=== PATIENT | male | born 1945 | race Caucasian/White ===

== ENCOUNTER 2016-07-31 04:43 | Inpatient (IN) | payer MEDICARE ==
[2016-07-31] MEDS ORDERED: IPRATROPIUM 0.5 MG/2.5 ML NEBU INHALATION STA (05:00)
[2016-07-31] MEDS ORDERED: ALBUTEROL NEBULIZED 2.5 MG/3 ML INHALATION STA (05:00)
[2016-07-31] MEDS ORDERED: NITROGLYCERIN OINT 1 INCH/GM PACKET TOPICAL STA (05:01)
[2016-07-31] MEDS ORDERED: ASPIRIN 81 MG CHEW PO STA (05:01)
--- NOTE | 2016-07-31 05:03 | ED ---
General Adult HPI - General Chief complaint: Chest Pain Stated complaint: chest pains Time Seen by Provider: 07/31/16 04:55 Source: patient, RN notes reviewed Mode of arrival: wheelchair Limitations: no limitations - History of Present Illness Initial comments: This is a 71-year-old male with past medical history significant for COPD hypertension and high cholesterol. Patient also has a strong family history of heart disease. Patient comes in today because a couple hours ago he woke up with left-sided chest pain. Patient states that sharp in nature but once that sharpness goes away after about a minute he has an achiness in his chest. Patient states he achiness continues to remain currently. Patient states she's also been much more short of breath since this started. Patient denies any diaphoresis. Patient denies any nausea. Patient denies abdominal pain patient denies vomiting or diarrhea recently. Patient denies any recent episodes of fever or increased cough. Patient denies headache patient denies numbness weakness. Patient denies any lightheadedness dizziness or near syncopal episode. Patient denies any leg swelling or calf tenderness. - Related Data Home Medications Medication Instructions Recorded Confirmed Famotidine [Pepcid] 40 mg PO BID 06/08/15 07/31/16 Gabapentin [Neurontin] 400 mg PO TID 06/08/15 07/31/16 Aspirin 81 mg PO Q24HR 06/09/15 07/31/16 Atenolol [Tenormin] 25 mg PO BID 06/09/15 07/31/16 Atorvastatin Calcium [Lipitor] 10 mg PO HS 06/09/15 07/31/16 Budesonide-Formot 160-4.5 Mcg 2 puff INHALATION RT-BID PRN 06/09/15 07/31/16 [Symbicort 160-4.5 Mcg Inhaler] Cholecalciferol [Vitamin D3] 400 unit PO DAILY 06/09/15 07/31/16 Cyanocobalamin [Vitamin B-12] 1,000 mcg PO DAILY 06/09/15 07/31/16 Allergies Allergy/AdvReac Type Severity Reaction Status Date / Time moxifloxacin [From Avelox] Allergy Unknown Verified 07/31/16 04:56 Review of Systems ROS Statement: Those systems with pertinent positive or pertinent negative responses have been documented in the HPI. ROS Other: All systems not noted in ROS Statement are negative. 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, obesity, chronic dependence and the patient has been utilizing 3 L of oxygen for COPD History of Any Multi-Drug Resistant Organisms: None Reported Past Surgical History: Orthopedic Surgery Past Anesthesia/Blood Transfusion Reactions: No Reported Reaction Past Psychological History: No Psychological Hx Reported Smoking Status: Current every day smoker Past Alcohol Use History: None Reported Past Drug Use History: None Reported - Past Family History Mother Family Medical History: Diabetes Mellitus, Myocardial Infarction (NM) Father Family Medical History: GERD/Reflux General Exam - General Exam Comments Initial Comments: GENERAL: Patient is well-developed and well-nourished. Patient is nontoxic and well- hydrated and is in mild distress. ENT: Neck is soft and supple. No significant lymphadenopathy is noted. Oropharynx is clear. Moist mucous membranes. Neck has full range of motion without eliciting any pain. EYES: The sclera were anicteric and conjunctiva were pink and moist. Extraocular movements were intact and pupils were equal round and reactive to light. Eyelids were unremarkable. PULMONARY: Very diminished breath sounds CARDIOVASCULAR: There is a regular rate and rhythm without any murmurs gallops or rubs. ABDOMEN: Soft and nontender with normal bowel sounds. No palpable organomegaly was noted. There is no palpable pulsatile mass. SKIN: Skin is clear with no lesions or rashes and otherwise unremarkable. NEUROLOGIC: Patient is alert and oriented x3. Cranial nerves II through XII are grossly intact. Motor and sensory are also intact. Normal speech, volume and content. Symmetrical smile. MUSCULOSKELETAL: Normal extremities with adequate strength and full range of motion. No lower extremity swelling or edema. No calf tenderness. LYMPHATICS: No significant lymphadenopathy is noted PSYCHIATRIC: Normal psychiatric evaluation. Normal interpersonal interactions appears functionally intact in deals appropriately with others. No signs of depression. No signs of anxiety. Limitations: no limitations Course Vital Signs 07/31/16 07/31/16 07/31/16 04:53 05:12 05:55 Temperature 99.0 F Pulse Rate 101 H 68 68 Respiratory 20 16 Rate Blood Pressure 149/73 117/78 O2 Sat by Pulse 96 98 Oximetry Medical Decision Making - Medical Decision Making EKG shows normal sinus rhythm at 70 bpm WI interval 182 QRS is 100 Q-T intervals 394 QTC is 425. Patient's EKG shows no ST segment elevation or depression or T wave abnormalities are noted Chest x-ray shows no acute abnormality. Patient received aspirin and Nitropaste he stated that helped his pain significantly. I started the patient on heparin because the patient had chest pain that was relieved by nitroglycerin and he had some risk factors as well. I spoke with Dr. Schwarz admitted the patient I consulted cardiology I wrote admitting orders. - Lab Data Result diagrams: 07/31/16 04:55 07/31/16 04:55 Lab Results 07/31/16 07/31/16 07/31/16 Range/Units 04:55 04:55 04:55 WBC 10.1 (3.8-10.6) k/uL RBC 5.07 (4.30-5.90) m/uL Hgb 15.1 (13.0-17.5) gm/dL Hct 48.8 (39.0-53.0) % MCV 96.2 (80.0-100.0) fL MCH 29.8 (25.0-35.0) pg MCHC 31.0 (31.0-37.0) g/dL RDW 13.2 (11.5-15.5) % Plt Count 205 (150-450) k/uL Neutrophils % 63 % Lymphocytes % 23 % Monocytes % 8 % Eosinophils % 3 % Basophils % 0 % Neutrophils # 6.3 (1.3-7.7) k/uL Lymphocytes # 2.3 (1.0-4.8) k/uL Monocytes # 0.8 (0-1.0) k/uL Eosinophils # 0.3 (0-0.7) k/uL Basophils # 0.0 (0-0.2) k/uL PT (9.0-12.0) sec INR (<1.1) APTT (22.0-30.0) sec Sodium 141 (137-145) mmol/L Potassium 4.6 (3.5-5.1) mmol/L Chloride 96 L (98-107) mmol/L Carbon Dioxide 35 H (22-30) mmol/L Anion Gap 10 mmol/L BUN 22 H (9-20) mg/dL Creatinine 1.10 (0.66-1.25) mg/dL Est GFR (MDRD) Af Amer >60 (>60 ml/min/1.73 sqM) Est GFR (MDRD) Non-Af >60 (>60 ml/min/1.73 sqM) Glucose 133 H (74-99) mg/dL Calcium 10.2 (8.4-10.2) mg/dL Magnesium 1.8 (1.6-2.3) mg/dL Total Bilirubin 0.8 (0.2-1.3) mg/dL AST 17 (17-59) U/L ALT 24 (21-72) U/L Alkaline Phosphatase 81 (38-126) U/L Total Creatine Kinase 63 (55-170) U/L CK-MB (CK-2) 1.8 (0.0-2.4) ng/mL CK-MB (CK-2) Rel Index 2.9 Troponin I <0.012 (0.000-0.034) ng/mL Total Protein 6.8 (6.3-8.2) g/dL Albumin 4.2 (3.5-5.0) g/dL 07/31/16 Range/Units 04:55 WBC (3.8-10.6) k/uL RBC (4.30-5.90) m/uL Hgb (13.0-17.5) gm/dL Hct (39.0-53.0) % MCV (80.0-100.0) fL MCH (25.0-35.0) pg MCHC (31.0-37.0) g/dL RDW (11.5-15.5) % Plt Count (150-450) k/uL Neutrophils % % Lymphocytes % % Monocytes % % Eosinophils % % Basophils % % Neutrophils # (1.3-7.7) k/uL Lymphocytes # (1.0-4.8) k/uL Monocytes # (0-1.0) k/uL Eosinophils # (0-0.7) k/uL Basophils # (0-0.2) k/uL PT 10.7 (9.0-12.0) sec INR 1.1 (<1.1) APTT 25.4 (22.0-30.0) sec Sodium (137-145) mmol/L Potassium (3.5-5.1) mmol/L Chloride (98-107) mmol/L Carbon Dioxide (22-30) mmol/L Anion Gap mmol/L BUN (9-20) mg/dL Creatinine (0.66-1.25) mg/dL Est GFR (MDRD) Af Amer (>60 ml/min/1.73 sqM) Est GFR (MDRD) Non-Af (>60 ml/min/1.73 sqM) Glucose (74-99) mg/dL Calcium (8.4-10.2) mg/dL Magnesium (1.6-2.3) mg/dL Total Bilirubin (0.2-1.3) mg/dL AST (17-59) U/L ALT (21-72) U/L Alkaline Phosphatase (38-126) U/L Total Creatine Kinase (55-170) U/L CK-MB (CK-2) (0.0-2.4) ng/mL CK-MB (CK-2) Rel Index Troponin I (0.000-0.034) ng/mL Total Protein (6.3-8.2) g/dL Albumin (3.5-5.0) g/dL Critical Care Time Critical Care Time: Yes Total Critical Care Time: 35 Disposition Clinical Impression: Unstable angina pectoris Disposition: ADMITTED IP TO THIS [facility] Time of Disposition: 06:23
[2016-07-31 05:11] LABS: Basophils % (A) 0 %; CH 30.4; CHCM 31.7; Eosinophils # (A) 0.3 k/uL (0-0.7); Eosinophils % (A) 3 %; HCT 48.8 % (39.0-53.0); HDW 2.33; HGB 15.1 gm/dL (13.0-17.5); Luc # (Auto) 0.32; Luc % (Auto) 3; Lymphocytes # (A) 2.3 k/uL (1.0-4.8); Lymphocytes % (A) 23 %; MCH 29.8 pg (25.0-35.0); MCV 96.2 fL (80.0-100.0); Mean Platelet Volume 7.5; Monocytes # (A) 0.8 k/uL (0-1.0); Monocytes % (A) 8 %; Neutrophils # (A) 6.3 k/uL (1.3-7.7); Neutrophils % (A) 63 %; RBC 5.07 m/uL (4.30-5.90); RDW 13.2 % (11.5-15.5); WBC 10.1 k/uL (3.8-10.6)
[2016-07-31] MEDS ORDERED: ALBUTEROL NEB (CONC) 2.5 MG/0.5 ML INHALATION STA (05:11)
[2016-07-31 05:20] LABS: INR 1.1 (<1.1); Partial Thromboplastin Time 25.4 sec (22.0-30.0); Prothrombin Time 10.7 sec (9.0-12.0)
[2016-07-31 05:29] LABS: ALT 24 U/L (21-72); AST 17 U/L (17-59); Alkaline Phosphatase 81 U/L (38-126); Anion Gap 10 mmol/L; Blood Urea Nitrogen 22 mg/dL (9-20); Calcium 10.2 mg/dL (8.4-10.2); Carbon Dioxide 35 mmol/L (22-30); Chloride 96 mmol/L (98-107); Glucose 133 mg/dL (74-99); Magnesium 1.8 mg/dL (1.6-2.3); Non-African American GFR(MDRD) >60 (>60 ml/min/1.73 sqM); Potassium 4.6 mmol/L (3.5-5.1); Sodium 141 mmol/L (137-145); Total Bilirubin 0.8 mg/dL (0.2-1.3); Total Protein 6.8 g/dL (6.3-8.2)
--- NOTE | 2016-07-31 05:29 | XR ---
EXAM: XR Chest, 2 Views. CLINICAL HISTORY: Reason: difficulty breathing TECHNIQUE: Frontal and lateral views of the chest. COMPARISON: 06/08/15 chest radiographs FINDINGS: Lungs: Lungs are stable, may be slightly hyperinflated, without focal infiltrate seen. Pleural spaces: Unremarkable. No pneumothorax. Heart: Unremarkable. No cardiomegaly. Mediastinum: Mild aortic ectasia is stable. Bones: Multilevel degenerative changes are again present. No acute fracture. IMPRESSION: No significant change; no new acute findings.
[2016-07-31 05:43] LABS: Creatine Kinase 63 U/L (55-170)
[2016-07-31 05:57] LABS: Creatine Kinase MB 1.8 ng/mL (0.0-2.4); Troponin I <0.012 ng/mL (0.000-0.034)
[2016-07-31] MEDS ORDERED: HEPARIN SODIUM,PORCINE 5,000 UNIT/ML 1 ML VIAL IV ONE (06:23)
[2016-07-31] MEDS ORDERED: NITROGLYCERIN SL TABS 0.4 MG TAB SUBLINGUAL PRN (06:24)
[2016-07-31] MEDS: HEPARIN SODIUM,PORCINE/D5W PMX 25,000 UNIT in DEXTROSE/WATER 1 500ML.BAG IV SCH (06:41)
[2016-07-31 08:11] VITALS: BMI 44.4
--- NOTE | 2016-07-31 10:21 | CONS ---
DATE OF CONSULTATION: Mr. Smith is a 71-year-old gentleman who is seen for the evaluation of chest pain. This patient has a history of hypertension and COPD. He also has a family history of coronary artery disease. Patient woke up this morning with the complaint of pain. The pain was in the substernal area. It was sharp in nature and subsequently patient had an aching in the chest. Patient was also short of breath. Patient denied any diaphoresis, nausea or vomiting. This patient's physical activities are limited because of COPD, but there is no prior history of myocardial infarction. Denies any history of angina. There is no history of diabetes. Home medications include Pepcid, Neurontin, aspirin, Tenormin, vitamin D3. Patient is allergic to AVELOX. Review of systems is otherwise unremarkable. Past medical history includes a history of orthopedic surgery, prior history of smoking, history of neuropathy, COPD, hyperlipidemia, hypertension. Physical examination at present reveals a 71-year-old obesely built gentleman who does not appear to be in any acute distress at present. Blood pressure is 146/75 mmHg, heart rate is 66 per minute, oxygen saturation is 93. Head/ENT examination is negative. Neck is supple. There is no increase in jugular venous pressure. Both the carotid pulses are felt. There is no bruit. Chest is symmetrical. HEART: The PMI is not felt. First and second heart sounds are normal. Lungs reveal a few scattered wheezes. Abdomen is soft. Liver and spleen are not enlarged. Bowel sounds are heard. EXTREMITIES: Peripheral pulsations are 2+. EKG shows normal sinus rhythm without any acute ischemic changes. First troponin is normal. Electrolytes are normal. Chest x-ray is normal. FINAL IMPRESSION: 1. Prolonged episode of chest pain suggestive of unstable angina, rule out any non- ST segment-elevation myocardial infarction. 2. History of hypertension. 3. History of chronic obstructive pulmonary disease. RECOMMENDATIONS: We will do serial EKGs and cardiac enzymes. The patient is started on a beta jorge and Lipitor and the patient is advised further evaluation with a cardiac catheterization. If patient remains stable, we will do it on Tuesday.
[2016-07-31] MEDS: METOPROLOL TARTRATE 25 MG TAB PO SCH ×2 (10:25→19:56)
[2016-07-31] MEDS: FAMOTIDINE 20 MG TAB PO SCH (10:26)
[2016-07-31] MEDS: GABAPENTIN 400 MG CAP PO SCH ×4 (10:26→19:56)
[2016-07-31] MEDS: ATORVASTATIN 40 MG TAB PO SCH (10:26)
[2016-07-31 11:05] LABS: Creatine Kinase 53 U/L (55-170)
[2016-07-31 11:20] LABS: Creatine Kinase MB 1.4 ng/mL (0.0-2.4); Troponin I <0.012 ng/mL (0.000-0.034)
[2016-07-31] MEDS: CYANOCOBALAMIN 500 MCG TAB PO SCH (13:01)
--- NOTE | 2016-07-31 13:02 | HP ---
DATE OF ADMISSION: 07/31/2016 PRESENTING COMPLAINT: Chest pain. HISTORY OF PRESENTING COMPLAINT: This is a pleasant 71-year-old patient of Dr. Moyer. Chronic stable medical conditions include COPD, GERD, hypertension, hyperlipidemia, home oxygen 3 L. Patient woke up at 1:00 with a central chest pain as if something was grabbing inside his heart. Patient a bit short of breath, tired, no perspiration, no radiation and because of presentation decided to come into the ER ( ) unstable angina. No prior cardiac history. Patient does get short winded easily. REVIEW OF SYSTEMS: CONSTITUTIONAL: Tired. HEENT: None. RESPIRATORY: As above. CARDIOVASCULAR: As above. GASTROINTESTINAL: As above. GENITOURINARY: None. MUSCULOSKELETAL: Some aches and pains in the joints. DERMATOLOGICAL: None. HEMATOLOGICAL: None. LYMPHATIC: None. PSYCHIATRY: None. NEUROLOGICAL: None. Past medical history of COPD, GERD, hypertension, hyperlipidemia, chronic respiratory failure on 3 L oxygen at home. PAST SURGICAL HISTORY: Orthopedic surgery, right knee arthroscopy, bunion on the big toe on the left, vasectomy. 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 No alcohol. . FAMILY HISTORY: Mother had heart disease and diabetes. HOME MEDICATIONS: 1. Tenormin 25 mg a day. 2. Aspirin 81 mg weekly. 3. Symbicort 160/4.5 two puffs b.i.d. 4. Lipitor 10 mg q.h.s. 5. Vitamin D3, 400 units p.o. weekly. 6. Pepcid 40 mg p.o. daily. 7. Vitamin B12, 1000 mcg p.o. daily. 8. Neurontin 400 mg p.o. q.i.d. Allergies to AVELOX. On examination, temperature 98.1, pulse 66, respiration 18, blood pressure 146/75, pulse ox 93% on 3 L. GENERAL APPEARANCE: Morbidly obese, BMI of 44.4, sitting up. EYES: Pupils equal. Conjunctivae normal. HEENT: External appearance of nose and ears normal. Oral cavity normal. NECK: JVD not raised. Mass not palpable. RESPIRATORY: Effort normal. LUNGS: Diminished breath sounds. CARDIOVASCULAR: First and second sounds normal. Mild edema. ABDOMEN: Distended, soft. Liver and spleen not palpable. LYMPHATIC: No lymph nodes palpable in the neck or axillae. PSYCHIATRY: Alert and oriented x3. Mood and affect normal. NEUROLOGICAL: Pupils equal. Cranial nerves grossly intact. Power and sensation grossly intact. INVESTIGATIONS: White count 10.1, hemoglobin 15.1, platelets 205. Potassium 4.6, BUN 22, creatinine 1.10. Troponin less than 0.012. EKG normal sinus rhythm. Chest x-ray a bit underpenetrated. Troponins x2 negative. ASSESSMENT: 1. Unstable angina with a cardiac sounding presentation. His cardiac risk factors include ex-smoker, hypertension, hyperlipidemia, obesity. 2. Morbid obesity, body mass index of 44.4. 3. Chronic obstructive pulmonary disease in an ex-smoker. 4. Gastroesophageal reflux disease. 5. Essential hypertension. 6. Hyperlipidemia. 7. Chronic hypoxic respiratory failure on 3 L oxygen at home. PLAN: Patient is put on aspirin, IV heparin, nitro paste. Cardiology is consulted. The patient may need a cardiac catheterization because of his presentation. Will need an inpatient for at least 48 hours to sort this out. Home medications are resumed. Care was discussed with the patient and at the bedside.
[2016-07-31] MEDS: NITROGLYCERIN OINT 1 INCH/GM PACKET TOPICAL SCH ×3 (13:05→20:03)
[2016-07-31] MEDS: ACETAMINOPHEN TAB 325 MG TAB PO PRN (15:06)
--- NOTE | 2016-07-31 16:11 | XR ---
EXAMINATION TYPE: XR lumbar spine 2 or 3V DATE OF EXAM: 07/31/2016 4:03 PM COMPARISON: NONE HISTORY: Back pain TECHNIQUE: 3 views FINDINGS: Vertebra have normal alignment. There is degenerative disc space narrowing at L4-5 and L5-S 1. There is spurring of endplates throughout the lumbar spine. Posterior elements are intact. There i s no compression fracture. Abdominal aorta is atheromatous. Sacroiliac joints appear normal. IMPRESSION: Multilevel spondylosis. No fracture.
[2016-07-31 17:45] LABS: Creatine Kinase 54 U/L (55-170)
[2016-07-31 17:58] LABS: Creatine Kinase MB 1.4 ng/mL (0.0-2.4); Troponin I <0.012 ng/mL (0.000-0.034)
--- NOTE | 2016-07-31 19:34 | ECHOF ---
Referral Reason:angina MEASUREMENTS -------- HEIGHT: 152.4 cm WEIGHT: 140.2 kg BP: 146/70 IVSd: 1.5 cm (0.6 - 1.1) LVIDd: 3.1 cm (3.9 - 5.3) LVPWd: 1.8 cm (0.6 - 1.1) IVSs: 1.4 cm LVIDs: 3.5 cm LVPWs: 1.4 cm Ao Diam: 4.2 cm (2.0 - 3.7) LA Diam: 3.3 cm (2.7 - 3.8) RAP: 5.00 mmHg RVSP: 21.14 mmHg FINDINGS -------- Sinus rhythm. This was a technically difficult study with suboptimal views. Morbid Obesity There is mild concentric left ventricular hypertrophy. Overall left ventricular systolic function is low-normal with, an EF between 50 - 55 %. The right ventricle is normal in size. The right atrial size is normal. 1.5MG OF DEFINITY UTLIZED: 2 OR MORE WALL SEGMENTS NOT VISUALIZED. The aortic valve was not well visualized. Mild mitral annular calcification present. Mild mitral regurgitation is present. The tricuspid valve was not well visualized. There is no evidence of pulmonary hypertension. The right ventricular systolic pressure, as measured by Doppler, is 21.14mmHg. The pulmonic valve was not well visualized. The aortic root size is normal. There is no pericardial effusion. CONCLUSIONS -------- 1. This was a technically difficult study with suboptimal views. 2. There is no evidence of pulmonary hypertension. 3. The right ventricular systolic pressure, as measured by Doppler, is 21.14mmHg. 4. The pulmonic valve was not well visualized. 5. The aortic root size is normal. 6. There is no pericardial effusion. 7. Morbid Obesity 8. There is mild concentric left ventricular hypertrophy. 9. Overall left ventricular systolic function is low-normal with, an EF between 50 - 55 %. 10. 1.5MG OF DEFINITY UTLIZED: 2 OR MORE WALL SEGMENTS NOT VISUALIZED. 11. The aortic valve was not well visualized. 12. Mild mitral annular calcification present. 13. Mild mitral regurgitation is present. 14. The tricuspid valve was not well visualized. CHIP TUNER: Gretel Nunn RDCS
[2016-07-31] MEDS: HEPARIN SODIUM,PORCINE 5,000 UNIT/ML 1 ML VIAL IV PRN (19:57)
[2016-08-01] MEDS: HEPARIN SODIUM,PORCINE/D5W PMX 25,000 UNIT in DEXTROSE/WATER 1 500ML.BAG IV SCH ×2 (03:15→20:12)
[2016-08-01 03:43] LABS: Cholesterol 127 mg/dL (<200); HDL Cholesterol 53 mg/dL (40-60); Triglycerides 82 mg/dL (<150)
[2016-08-01] MEDS: NITROGLYCERIN OINT 1 INCH/GM PACKET TOPICAL SCH ×3 (04:32→17:25)
[2016-08-01] MEDS: HEPARIN SODIUM,PORCINE 5,000 UNIT/ML 1 ML VIAL IV PRN (04:32)
[2016-08-01] MEDS: ASPIRIN 325 MG TAB PO SCH (08:59)
[2016-08-01] MEDS: FAMOTIDINE 20 MG TAB PO SCH (08:59)
[2016-08-01] MEDS: ATORVASTATIN 40 MG TAB PO SCH (08:59)
[2016-08-01] MEDS: GABAPENTIN 400 MG CAP PO SCH ×4 (08:59→21:31)
[2016-08-01] MEDS ORDERED: SODIUM CHLORIDE 0.9% 1,000 ML in EMPTY BAG 1 BAG IV ONE (10:41)
[2016-08-01] MEDS ORDERED: NITROGLYCERIN SL TABS 0.4 MG TAB SUBLINGUAL PRN (10:41)
[2016-08-01] MEDS ORDERED: ASPIRIN 325 MG TAB PO STA (10:41)
[2016-08-01] MEDS ORDERED: ATORVASTATIN 40 MG TAB PO STA (10:41)
[2016-08-01] MEDS ORDERED: ALPRAZolam 0.25 MG TAB PO PRN (10:41)
[2016-08-01] MEDS ORDERED: ALPRAZolam 0.5 MG TAB PO PRN (10:41)
[2016-08-01] MEDS: METOPROLOL TARTRATE 25 MG TAB PO SCH ×2 (12:07→21:31)
[2016-08-01] MEDS: CYANOCOBALAMIN 500 MCG TAB PO SCH (12:07)
[2016-08-01] MEDS: ACETAMINOPHEN TAB 325 MG TAB PO PRN ×2 (17:25→21:31)
--- NOTE | 2016-08-01 19:06 | P.PN ---
Subjective This patient is admitted with a prolonged episode of substernal chest discomfort suggestive of unstable angina syndrome. Since cardiac enzymes are normal. Patient denies any chest pain. Patient is scheduled for cardiac catheterization tomorrow. Objective - Vital Signs Vital signs: Vital Signs Temp 97.8 F 08/01/16 16:00 Pulse 68 08/01/16 16:00 Resp 18 08/01/16 07:51 BP 165/82 08/01/16 16:00 Pulse Ox 93 L 08/01/16 16:00 Intake & Output 08/01/16 08/01/16 08/02/16 06:59 18:59 06:59 Intake Total 564 Balance 564 Intake: IV 120 0.9@20 120 Heparin Sodium,Porcine/ D5w Pmx 25,000 unit In Dextrose/Water 1 500ml. bag @ 7.13 UNITS/KG/HR 19 .98 mls/hr IV .Q24H EDOUARD Rx#:[id number] Intake, IV Titration Amount Heparin Sodium,Porcine/ D5w Pmx 25,000 unit In Dextrose/Water 1 500ml. bag @ 7.13 UNITS/KG/HR 19 .98 mls/hr IV .Q24H EDOUARD Rx#:[id number] Oral 444 Other: Voiding Method Toilet # Voids - Exam Vital signs are reviewed patient is comfortable. Heart. First and second heart sounds are normal. Lungs. Clear to auscultation and percussion. - Labs CBC & Chem 7: 07/31/16 04:55 07/31/16 04:55 Labs: Abnormal Lab Results - Last 24 Hours (Table) 08/01/16 08/01/16 Range/Units 03:15 10:47 APTT 42.3 H 57.2 H (22.0-30.0) sec Assessment and Plan Plan: Patient history suggestive of unstable angina syndrome patient is scheduled for cardiac catheterization tomorrow.
[2016-08-01] MEDS: IPRATROPIUM-ALBUTEROL 3 ML NEB INHALATION SCH (19:13)
[2016-08-02] MEDS: NITROGLYCERIN OINT 1 INCH/GM PACKET TOPICAL SCH ×4 (00:19→16:56)
[2016-08-02 01:04] LABS: Appearance,Urine Clear (Clear); Bacteria,Urine Rare /hpf; Bilirubin,Urine Negative (Negative); Glucose,Urine (UA) Negative (Negative); Ketones,Urine Negative (Negative); Leukocyte Esterase,Urine Negative (Negative); Mucus,Urine Occasional /hpf; Nitrite,Urine Negative (Negative); PH, Urine 5.5 (5.0-8.0); Particle Count 2847; Protein,Urine 1+ (Negative); RBC,Urine <1 /hpf (0-5); Specific Gravity,Urine 1.022 (1.001-1.035); Squamous Epithelial Cell,Urine <1 /hpf (0-4); UA Billing (MACRO vs. MICRO) MICRO; WBC,Urine 1 /hpf (0-5)
[2016-08-02] MEDS: ACETAMINOPHEN TAB 325 MG TAB PO PRN (04:14)
[2016-08-02 06:31] LABS: Glucose,Whole Blood 121 mg/dL (75-99)
--- NOTE | 2016-08-02 07:18 | PN ---
DATE OF SERVICE: 08/01/2016 PRESENTING COMPLAINT: Chest pain. INTERVAL HISTORY: This is a patient with multiple medical problems presented with chest pain, awaiting a cardiac cath tomorrow. Also having trouble in the middle of the back, x-ray does not show lumbar DJD with narrowing of the disc space. Patient had also been short of breath for underlying diagnosis of COPD. Family members at the bedside. Review of systems done for constitutional, cardiovascular, GI, pulmonary; relevant findings as above. Current medications are reviewed and include IV heparin. On examination, temperature 97.8, pulse 58, respiration 16, blood pressure 165/82, pulse ox 93% on room air. GENERAL APPEARANCE: Sitting on the edge of the bed. Tired-appearing. EYES: Pupils equal, conjunctivae normal. NECK: JVD not raised. Mass not palpable. Respiratory effort normal. LUNGS: Diminished breath sounds. CARDIOVASCULAR: First and second sounds normal. Minimal edema. ABDOMEN: Soft, nontender. Liver and spleen not palpable. PSYCHIATRY: Alert and oriented x3. Mood and affect normal. INVESTIGATIONS: Troponins are negative, LDL 58. Lumbar spine x-ray shows evidence of lumbosacral DJD. ASSESSMENT: 1. Unstable angina in a patient with multiple cardiac risk factors, awaiting cardiac catheterization. 2. IV heparin monitoring for therapeutic level. 3. Morbid obesity, body mass index of 44.4. 4. Chronic obstructive pulmonary disease in an ex-smoker. 5. Gastroesophageal reflux disease. 6. Essential hypertension. 7. Hyperlipidemia. 8. Chronic hypoxic respiratory failure, on 3 L of oxygen at home. 9. Lumbar spine degenerative joint disease. 10. Outpatient work-up for obstructive sleep apnea. PLAN: Care was discussed with the patient, his and family members. Questions were answered. Await cardiac catheterization. Will give breathing treatments and Tylenol No. 3 for lower back pain.
[2016-08-02] MEDS: GABAPENTIN 400 MG CAP PO SCH ×4 (08:56→21:11)
[2016-08-02] MEDS: ASPIRIN 325 MG TAB PO SCH (08:56)
[2016-08-02] MEDS: CYANOCOBALAMIN 500 MCG TAB PO SCH (08:57)
[2016-08-02] MEDS: METOPROLOL TARTRATE 25 MG TAB PO SCH ×2 (08:57→21:11)
[2016-08-02] MEDS: FAMOTIDINE 20 MG TAB PO SCH (08:57)
[2016-08-02] MEDS: ATORVASTATIN 40 MG TAB PO SCH (08:57)
[2016-08-02] MEDS: Acetaminophen-Codeine 300-30mg TAB PO PRN ×2 (09:05→16:48)
[2016-08-02] MEDS: IPRATROPIUM-ALBUTEROL 3 ML NEB INHALATION SCH ×4 (09:30→19:48)
[2016-08-02 12:14] LABS: Glucose,Whole Blood 113 mg/dL (75-99)
[2016-08-02] MEDS: HEPARIN SODIUM,PORCINE/D5W PMX 25,000 UNIT in DEXTROSE/WATER 1 500ML.BAG IV SCH (13:30)
[2016-08-02] MEDS ORDERED: LIDOCAINE 2% INJ 20 MG/ML (20 ML MDV) ONE (13:40)
[2016-08-02] MEDS ORDERED: diphenhydrAMINE 50 MG/ML 1 ML VIAL ONE (13:59)
[2016-08-02] MEDS ORDERED: fentaNYL (PF) 50 MCG/ML 2 ML AMP ONE (13:59)
[2016-08-02] MEDS ORDERED: MIDAZOLAM 2 MG/2 ML VIAL ONE (13:59)
[2016-08-02] MEDS ORDERED: SODIUM CHLORIDE 0.9% 1,000 ML IV ONE (14:03)
[2016-08-02] MEDS ORDERED: diphenhydrAMINE 50 MG/ML 1 ML VIAL IVP ONE (14:05)
[2016-08-02] MEDS ORDERED: fentaNYL (PF) 50 MCG/ML 2 ML AMP IV ONE (14:14)
[2016-08-02] MEDS ORDERED: MIDAZOLAM 2 MG/2 ML VIAL IV ONE (14:14)
[2016-08-02] MEDS ORDERED: LIDOCAINE 2% INJ 20 MG/ML SQ ONE (14:16)
[2016-08-02] MEDS ORDERED: IOHEXOL 350 MG/ML 100 ML BOTTLE INJ ONE (14:50)
[2016-08-03] MEDS: NITROGLYCERIN OINT 1 INCH/GM PACKET TOPICAL SCH ×5 (00:17→23:04)
[2016-08-03] MEDS: ASPIRIN 325 MG TAB PO SCH (06:19)
[2016-08-03] MEDS: FAMOTIDINE 20 MG TAB PO SCH (06:19)
[2016-08-03] MEDS: ATORVASTATIN 40 MG TAB PO SCH (06:19)
[2016-08-03] MEDS: GABAPENTIN 400 MG CAP PO SCH ×4 (06:20→20:17)
[2016-08-03] MEDS: METOPROLOL TARTRATE 25 MG TAB PO SCH ×2 (06:20→20:15)
[2016-08-03 06:57] LABS: Anion Gap 7 mmol/L; Blood Urea Nitrogen 13 mg/dL (9-20); Calcium 9.6 mg/dL (8.4-10.2); Carbon Dioxide 33 mmol/L (22-30); Chloride 97 mmol/L (98-107); Glucose 129 mg/dL (74-99); Non-African American GFR(MDRD) >60 (>60 ml/min/1.73 sqM); Potassium 4.5 mmol/L (3.5-5.1); Sodium 137 mmol/L (137-145)
[2016-08-03] MEDS: IPRATROPIUM-ALBUTEROL 3 ML NEB INHALATION SCH ×4 (08:30→20:43)
[2016-08-03] MEDS ORDERED: ALPRAZolam 0.25 MG TAB PO PRN ×2 (09:33→10:10)
[2016-08-03] MEDS ORDERED: ALPRAZolam 0.5 MG TAB PO PRN ×2 (09:33→10:10)
[2016-08-03] MEDS ORDERED: SODIUM CHLORIDE 0.9% 1,000 ML in EMPTY BAG 1 BAG IV ONE ×2 (09:33→10:10)
[2016-08-03] MEDS ORDERED: NITROGLYCERIN SL TABS 0.4 MG TAB SUBLINGUAL PRN ×2 (09:33→10:10)
[2016-08-03] MEDS ORDERED: ASPIRIN 325 MG TAB PO STA ×2 (09:33→10:10)
[2016-08-03] MEDS ORDERED: ATORVASTATIN 80 MG TAB PO STA ×2 (09:33→10:10)
--- NOTE | 2016-08-03 09:39 | PN ---
DATE OF SERVICE: 08/02/2016 PRESENTING COMPLAINT: Chest pain. INTERVAL HISTORY: This is a patient with multiple medical problems presented with chest pain who underwent a cardiac cath today. I do not have the formal results, but patient tells me that they did find a lesion, but have not decided if it needs further intervention. The patient's lower back pain is better with the current medication and breathing is better. is at the bedside. Review of systems done for constitutional, cardiovascular, GI, pulmonary; relevant findings as above. Current medications are reviewed. The patient is currently off heparin. On examination, temperature 97, pulse 58, respirations 18, blood pressure 132/72, pulse ox 96% on 2-L. GENERAL APPEARANCE: Propped up in bed using nebulizer. EYES: Pupils equal. Conjunctivae normal. NECK: JVD not raised. Mass not palpable. RESPIRATORY: Effort increased. LUNGS: Diminished breath sounds. CARDIOVASCULAR: First and second sounds normal. Minimal edema. ABDOMEN: Soft, nontender. Liver and spleen not palpable. PSYCHIATRY: Alert and oriented x3. Mood and affect normal. INVESTIGATIONS: Accu-Cheks are noted. ASSESSMENT: 1. Unstable angina in a patient with multiple cardiac risk factors, status post cardiac cath. I do not have formal results. 2. Morbid obesity, body mass index of 44.4. 3. Chronic obstructive pulmonary disease in an ex-smoker. 4. Gastroesophageal reflux disease. 5. Essential hypertension. 6. Hyperlipidemia. 7. Chronic hypoxic respiratory failure on 3 liters oxygen at home from underlying chronic obstructive pulmonary disease. 8. Lumbar spine degenerative joint disease, chronic, with acute presentation, now doing better. 9. Outpatient work-up for obstructive sleep apnea. PLAN: Care was discussed with the patient and . Will see what Cardiology does. In the meantime, continue other medication and treatment plan.
--- NOTE | 2016-08-03 09:44 | CC ---
DATE OF SERVICE: Mr. Smith is a 71-year-old gentleman who was admitted with a prolonged episode of substernal chest discomfort suggestive of unstable angina syndrome. EKGs and cardiac enzymes were normal, but because of the prolonged episode of the pain. Patient was advised cardiac catheterization for definitive diagnosis. PROCEDURE: The right groin was prepped and draped in the usual manner and the skin was infiltrated with 2% Xylocaine. The right femoral artery was entered using Seldinger technique. A #6 Ethiopian sheath was placed in. Selective coronary angiography was then performed in multiple projections. Patient tolerated the procedure well. Sheath was removed and good hemostasis was achieved with the use of Angio-Seal. CORONARY ANGIOGRAPHY: Left main coronary artery is a short. LAD is a good caliber blood vessel and gives rise to the diagonal branch and after the origin of the diagonal branch. LAD becomes a small caliber blood vessel. There is no evidence of any significant stenosis. There is a small size obtuse marginal branches that is arising by the site from the short left main. The main circumflex coronary artery arises from the right coronary cusp and it gives rise to good-sized obtuse marginal branch and PLV branch. The circumflex coronary artery is normal. Right coronary artery also arises from the [id number] cusp on the right side. The right coronary artery has two areas of stenosis, proximally has about 60% stenosis and distally has a 60% to 70% stenosis. RECOMMENDATIONS: We will review the film with Dr. Jay and then consider regarding either further evaluation with FFR or an angioplasty or medical therapy.
[2016-08-03] MEDS: CYANOCOBALAMIN 500 MCG TAB PO SCH (11:43)
[2016-08-03] MEDS: CLOPIDOGREL 75 MG TAB PO SCH (11:44)
[2016-08-03] MEDS: Acetaminophen-Codeine 300-30mg TAB PO PRN (20:15)
--- NOTE | 2016-08-03 22:31 | PN ---
DATE OF SERVICE: 08/03/2016 PRESETING COMPLAINT: Chest pain. INTERVAL HISTORY: The patient brought to in because of chest pain, had a cardiac cath that showed 2 lesions in the RCA. Cardiology decided to go back in tomorrow and maybe do a stenting. Patient's breathing is better. Back pain is much better. Sitting up in a chair. is with him. Review of systems done for constitutional, cardiovascular, GI, pulmonary, musculoskeletal; relevant findings as above. Current medications are reviewed. The patient is off heparin, is on: 1. Plavix. 2. Nitro paste. On examination, temperature 98, pulse 74, respirations 18, blood pressure 149/68, pulse ox 92% on room air. GENERAL: Sitting up in a chair, comfortable. EYES: Pupils equal. Conjunctivae normal. NECK: JVD not raised. Mass not palpable. RESPIRATORY: Effort normal. LUNGS: Diminished breath sounds. CARDIOVASCULAR: First and second sounds normal, minimal edema. ABDOMEN: Soft, nontender. Liver and spleen not palpable. PSYCHIATRY: Alert and oriented x3. Mood and affect normal. INVESTIGATIONS: Potassium 4.5, BUN 13, creatinine 1.0. ASSESSMENT: 1. Unstable angina in a patient with multiple cardiac risk factors, status post cardiac catheterization, now showing 2 lesions in the right coronary artery. Cardiology is thinking intervention tomorrow. 2. Morbid obesity, body mass index of 44.4. 3. Chronic obstructive pulmonary disease in an ex-smoker. 4. Gastroesophageal reflux disease. 5. Essential hypertension. 6. Hyperlipidemia. 7. Chronic hypoxic respiratory failure on 3L oxygen at home from underlying chronic obstructive pulmonary disease. 8. Lumbar spine degenerative joint disease, chronic with acute presentation, now doing better. 9. Otherwise workup also for sleep apnea. PLAN: Care was discussed with the patient and . Continue current medication and treatment plan. Await repeat cath tomorrow.
[2016-08-04] MEDS: ATORVASTATIN 80 MG TAB PO SCH (05:00)
[2016-08-04] MEDS: Acetaminophen-Codeine 300-30mg TAB PO PRN (05:01)
[2016-08-04] MEDS: NITROGLYCERIN OINT 1 INCH/GM PACKET TOPICAL SCH (05:03)
[2016-08-04] MEDS ORDERED: ASPIRIN 325 MG TAB PO SCH (06:00)
[2016-08-04] MEDS ORDERED: SODIUM CHLORIDE 0.9% 1,000 ML in EMPTY BAG 1 BAG IV ONE (06:00)
[2016-08-04] MEDS ORDERED: HEPARIN SODIUM 1,000 UNIT/ML VIAL ONE (07:10)
[2016-08-04] MEDS ORDERED: LIDOCAINE 2% INJ 20 MG/ML (20 ML MDV) ONE (07:10)
[2016-08-04] MEDS ORDERED: SODIUM CHLORIDE 0.9% (PF) 10 ML VIAL ONE (07:11)
[2016-08-04] MEDS ORDERED: VERAPAMIL 2.5 MG/ML 2 ML AMP ONE (07:11)
[2016-08-04] MEDS ORDERED: fentaNYL (PF) 50 MCG/ML 2 ML AMP ONE (07:18)
[2016-08-04] MEDS: IPRATROPIUM-ALBUTEROL 3 ML NEB INHALATION SCH ×4 (07:23→20:18)
[2016-08-04] MEDS ORDERED: fentaNYL (PF) 50 MCG/ML 2 ML AMP IV ONE (07:40)
[2016-08-04] MEDS ORDERED: LIDOCAINE 2% INJ 20 MG/ML SQ ONE (07:44)
[2016-08-04] MEDS ORDERED: VERAPAMIL SYRINGE (5 MG/10 ML) INTRAARTER ONE (07:45)
[2016-08-04] MEDS ORDERED: CLOPIDOGREL 75 MG TAB ONE (07:47)
[2016-08-04] MEDS ORDERED: BIVALIRUDIN BOLUS 250 MG/50 ML IV ONE ×3 (07:49→07:52)
[2016-08-04] MEDS ORDERED: BIVALIRUDIN 250 MG in SODIUM CHLORIDE 0.9% 50 ML IV ONE (07:53)
[2016-08-04] MEDS ORDERED: CLOPIDOGREL 75 MG TAB PO ONE (07:54)
[2016-08-04] MEDS ORDERED: IOHEXOL 350 MG/ML 100 ML BOTTLE INJ ONE (08:12)
[2016-08-04] MEDS ORDERED: SODIUM CHLORIDE 0.9% 1,000 ML IV ONE (08:15)
[2016-08-04] MEDS ORDERED: ZOLPIDEM 5 MG TAB PO PRN (08:26)
[2016-08-04] MEDS ORDERED: RX INFO: IV CONTRAST WAS GIVEN 1 EACH MISC MISCELLANE PRN (08:26)
[2016-08-04] MEDS ORDERED: ATROPINE SULFATE 0.1 MG/ML 10ML SYRINGE IV PRN (08:26)
[2016-08-04] MEDS ORDERED: MAG HYDROX/AL HYDROX/SIMETH 30 ML CUP PO PRN (08:26)
[2016-08-04] MEDS ORDERED: NITROGLYCERIN SL TABS 0.4 MG TAB SUBLINGUAL PRN (08:26)
[2016-08-04] MEDS ORDERED: SODIUM CHLORIDE 0.9% 1,000 ML IV SCH (08:30)
[2016-08-04] MEDS: GABAPENTIN 400 MG CAP PO SCH ×4 (08:39→20:46)
[2016-08-04] MEDS: CLOPIDOGREL 75 MG TAB PO SCH (08:39)
[2016-08-04] MEDS: METOPROLOL TARTRATE 25 MG TAB PO SCH ×2 (08:40→20:45)
[2016-08-04] MEDS: FAMOTIDINE 20 MG TAB PO SCH (08:40)
[2016-08-04] MEDS: CYANOCOBALAMIN 500 MCG TAB PO SCH (08:40)
--- NOTE | 2016-08-04 08:54 | PTCA ---
DATE OF SERVICE: Mr. Smith is a 71-year-old male who presented with symptoms of chest discomfort. He underwent evaluation by Dr. Karen Birch and was found to have significant stenosis involving the mid and the distal right coronary artery with borderline lesion in the LAD. In view of that, recommendation was made regarding angioplasty and stenting. The procedure as well as risks and complications were discussed with the patient who is in full understanding and agreement. PROCEDURE: The patient was brought to the lab support service tech in a fasting, semi-sedated state after receiving fentanyl and Benadryl. After obtaining moderate conscious sedation, using Xylocaine anesthesia in the Seldinger technique, a 6-Welsh sheath was introduced in the right radial artery. Right coronary angiography performed using 6 Welsh, FR4 guiding catheter and after cannulating the right coronary ostium a 0.014 balanced medium weight J wire was advanced across the lesion, positioned distally then a 2.75 x 15 mm Xience Alpine stent was deployed distally, postdilated at 14 atmospheres. Following that, a balloon was removed and a 3.0 x 18 mm Xience Alpine stent was deployed in the mid segment, post dilated at 14 atmospheres. After the last inflation, after appropriate wait, the balloon and the guide wire was withdrawn back in the guiding catheter. Images were obtained and repeated. Those images reveal stable successful stenting. At that point, the guiding catheter, the balloon and the guidewire removed and a 6 Welsh FR4 guiding catheter was introduced in the system and images of the left coronary system were obtained. Following that, catheter and sheaths were removed. Hemostasis was obtained with deployment of a TR band. There were no immediate complications. Patient is returned to his room in stable condition. Of note, the patient had no chest discomfort or significant EKG changes with the inflations. He received Angiomax per protocol as well as oral loading dose of clopidogrel. RESULTS: 1. Successful stenting of the distal right coronary artery with reduction in stenosis from 70% to 0%. 2. Successful stenting of the mid right coronary artery with reduction in stenosis from 70% to 0%. 3. 40% to 50% lesion in the proximal LAD in a tubular fashion. RECOMMENDATION: Patient will be continued on aspirin, Plavix, beta jorge and KEN inhibitor and statin. The importance of dual antiplatelet treatment were discussed with the patient and his family and they are in full understanding and agreement. The duration of the procedure was 41 minutes. MTDD
[2016-08-04] MEDS: LISINOPRIL 5 MG TAB PO SCH (08:56)
--- NOTE | 2016-08-04 08:57 | LTR ---
August 04, 2016 MARITZA MOYER MD RE: Luis Omar Dear Dr. Moyer: I had the opportunity to perform coronary angioplasty and stenting on Mr. Smith at [facility] on 04 of August and a full copy of the procedure note will be forwarded to you. In brief, he underwent successful stenting of his mid and distal right coronary artery using a drug-eluting stent. I am hopeful that this procedure will stabilize his status and I thank you again for allowing me the opportunity to participate in his care. Please feel free to call for any questions. Sincerely yours, ALICE ROSAS MD
[2016-08-04] MEDS ORDERED: ASPIRIN 81 MG CHEW PO SCH (09:00)
[2016-08-04] MEDS: ACETAMINOPHEN TAB 325 MG TAB PO PRN (20:46)
--- NOTE | 2016-08-05 06:15 | PN ---
DATE OF SERVICE: 08/04/2016 PRESENTING COMPLAINT: Chest pain. INTERVAL HISTORY: This patient came in with chest pain. Initial cardiac cath showed 2 lesions in the RCA. The patient underwent 2 drug eluting stents to the RCA today. Postprocedure, lying in bed, comfortable. No chest pain. Breathing is stable. Review of systems done for constitutional, cardiovascular, GI, pulmonary; relevant findings as above. Current medications are reviewed that include Plavix and aspirin. On examination, pulse 78, respirations 18, blood pressure 166/79, pulse ox 94% on room air. GENERAL APPEARANCE: Lying in bed, comfortable. EYES: Pupils equal. Conjunctivae normal. NECK: JVD not raised. Mass not palpable. RESPIRATORY: Effort normal. LUNGS: Diminished breath sounds. CARDIOVASCULAR: First and second seconds normal. Minimal edema. ABDOMEN: Soft, nontender. Liver and spleen not palpable. PSYCHIATRY: Alert and oriented x3. Mood and affect normal. INVESTIGATIONS: Potassium 4.5. ASSESSMENT: 1. Unstable angina with the patient now having getting 2 drug-eluting stents to the right coronary artery. 2. Morbid obesity, body mass index 44.4. 3. Chronic obstructive pulmonary disease in an ex-smoker. 4. Gastroesophageal reflux disease. 5. Essential hypertension. 6. Hyperlipidemia. 7. Chronic hypoxic respiratory failure, on 3 L oxygen at home from underlying chronic obstructive pulmonary disease. 8. Lumbar spine degenerative joint disease, chronic with acute presentation, now doing better. 9. Outpatient workup for sleep apnea. PLAN: Care was discussed with the patient. Continue current medication and treatment plan.
[2016-08-05 06:57] LABS: Anion Gap 8 mmol/L; Blood Urea Nitrogen 13 mg/dL (9-20); Calcium 9.4 mg/dL (8.4-10.2); Carbon Dioxide 34 mmol/L (22-30); Chloride 97 mmol/L (98-107); Glucose 121 mg/dL (74-99); Non-African American GFR(MDRD) >60 (>60 ml/min/1.73 sqM); Potassium 4.8 mmol/L (3.5-5.1); Sodium 139 mmol/L (137-145)
[2016-08-05] MEDS: IPRATROPIUM-ALBUTEROL 3 ML NEB INHALATION SCH ×3 (08:04→15:52)
[2016-08-05] MEDS ORDERED: ASPIRIN 81 MG CHEW PO SCH (09:00)
[2016-08-05] MEDS: ATORVASTATIN 80 MG TAB PO SCH (10:10)
[2016-08-05] MEDS: FAMOTIDINE 20 MG TAB PO SCH (10:11)
[2016-08-05] MEDS: CLOPIDOGREL 75 MG TAB PO SCH (10:11)
[2016-08-05] MEDS: LISINOPRIL 5 MG TAB PO SCH (10:12)
[2016-08-05] MEDS: METOPROLOL TARTRATE 25 MG TAB PO SCH (10:12)
[2016-08-05] MEDS: ACETAMINOPHEN TAB 325 MG TAB PO PRN (10:12)
[2016-08-05] MEDS: GABAPENTIN 400 MG CAP PO SCH ×2 (10:12→12:11)
[2016-08-05] MEDS: CYANOCOBALAMIN 500 MCG TAB PO SCH (11:25)
[2016-08-05 12:06] VITALS: TEMP 98.2
--- NOTE | 2016-08-05 17:31 | PN ---
This patient underwent stent to the right coronary artery. Mid LAD had mild disease. He is doing well. Right radial pulses are 2+. Patient is afebrile. Blood pressure is 129/62 mmHg. We will continue the current medications and patient can be discharged home.
[2016-08-05 17:55] VITALS: BP 132/59; PULSE 71; RESP 17
--- NOTE | 2016-08-07 13:09 | DS ---
DATE OF ADMISSION: 07/31/2016 DATE OF DISCHARGE: 08/05/2016 FINAL DIAGNOSES: 1. Unstable angina in a patient getting two drug-eluting stents to the right coronary artery. 2. Morbid obesity, body mass index of 44.4. 3. Chronic obstructive pulmonary disease in an ex-smoker. 4. Gastroesophageal reflux disease. 5. Essential hypertension. 6. Hyperlipidemia. 7. Chronic hypoxic respiratory failure on 3 L oxygen at home from underlying chronic obstructive pulmonary disease. 8. Lumbar spine degenerative joint disease, chronic, with acute presentation, now doing better. 9. Outpatient work-up for sleep apnea. HOSPITAL COURSE: This patient presented with some chest pain. Found to have COPD exacerbation, responded well to nebulized bronchodilators, acute low back from osteoarthritis of the spine. He is responding well to medications. Cardiac cath was done in 2 sessions with the second one resulting in 2 stents to the right coronary artery. At the time of discharge the patient is doing been better, up and about. On examination, BUN and creatinine are normal. The patient's 2-D echocardiogram showed EF of 50% to 55%. Care was discussed with the patient in detail. DISCHARGE MEDICATIONS: 1. Pepcid 40 mg p.o. daily. 2. Neurontin 400 mg p.o. q.i.d. 3. Symbicort 160/4.5, 2 puffs b.i.d. 4. Vitamin D3, 4000 units p.o. daily. 5. Vitamin B12, 100 mcg p.o. daily. 6. Tylenol No. 3, 1 tablet every.6 p.r.n. 7. Aspirin 81 mg daily. 8. Lipitor 80 mg a day. 9. Plavix 75 mg a day. 10. DuoNeb q.i.d. 11. Zestril 5 mg a day. 12. Lopressor 25 mg b.i.d. 13. Nitrostat 0.4 sublingual every 5 p.r.n. 14. Ambien 5 mg p.o. at bedtime p.r.n. FOLLOWUP: Follow up with Dr. Kendall Moyer 08/09/2016. Also follow up with Dr. Moyer as outpatient for sleep study. Follow up with Dr. Karen Birch in 2 weeks. Care was discussed in detail with the patient. Discharge planning more than 35 minutes.
== END 2016-08-05 18:17 | disposition home or self-care (01) | DRG 247 ==
LOC: EC 04:43 → 3OBS 06:24 → OBSVTOIN 10:31 → 6SEL 08-01 10:00
PROVIDERS: ADMIT Hospitalist; ATTEND Hospitalist
PROC: B2111ZZ Fluoroscopy of Multiple Coronary Arteries using Low Osmolar Contrast (ICD-10-PCS; 2016-08-02)
PROC: 027035Z Dilation of Coronary Artery, One Artery with Two Drug-eluting Intraluminal Devices, Percutaneous Approach (ICD-10-PCS; principal; 2016-08-04 07:02)
DX: I25.110 Atherosclerotic heart disease of native coronary artery with unstable angina pectoris (principal); J96.11 Chronic respiratory failure with hypoxia; J44.1 Chronic obstructive pulmonary disease with (acute) exacerbation; Z68.41 Body mass index [BMI] 40.0-44.9, adult; E66.01 Morbid (severe) obesity due to excess calories; G62.9 Polyneuropathy, unspecified; Z99.81 Dependence on supplemental oxygen; E78.5 Hyperlipidemia, unspecified; K21.9 Gastro-esophageal reflux disease without esophagitis; I10 Essential (primary) hypertension; M47.816 Spondylosis without myelopathy or radiculopathy, lumbar region; G47.30 Sleep apnea, unspecified; E78.00 Pure hypercholesterolemia, unspecified; Z87.891 Personal history of nicotine dependence; Z79.82 Long term (current) use of aspirin; Z79.899 Other long term (current) drug therapy; Z79.51 Long term (current) use of inhaled steroids; Z82.49 Family history of ischemic heart disease and other diseases of the circulatory system
CPT/HCPCS: 36415; 71020; 72100; 80048; 80053; 80061; 81001; 82550; 82553; 83735; 84484; 85025; 85610; 85730; 87086; 93005; 93306; 93458; 94640; 94760; 96365; 96366; 96374; 96375; 99291

== ENCOUNTER → 2016-10-26 | Outpatient (CLI) | payer MEDICARE ==
[2016-10-29 14:39] LABS: LDL Size 20.1 nm (>20.5); LDL Size 2 20.1 nm (>=20.8)
== END | disposition home or self-care (01) ==
LOC: LABWHC1 08:55
PROVIDERS: ATTEND Internal Medicine Cardiovascular Disease
DX: I25.10 Atherosclerotic heart disease of native coronary artery without angina pectoris (principal)
CPT/HCPCS: 36415; 83704

== ENCOUNTER → 2016-11-11 | Outpatient (CLI) | payer MEDICARE ==
--- NOTE | 2016-11-11 14:59 | CTL ---
EXAMINATION TYPE: CT Low Dose Lung DATE OF EXAM ORDERED: 11/11/2016 HISTORY: Initial. Lung cancer screening CT DLP: [address] CTDI: 3.98 mGy Automated exposure control for dose reduction was used. SCREENING VISIT: Initial COMPARISON: None TECHNIQUE: Low dose computed tomography scan was performed through the chest at 1 mm thick sections a nd reconstructed images in the coronal plane at [address] DIAGNOSTIC QUALITY: Satisfactory FINDINGS: LUNG NODULES: None. LUNGS: COPD: Severity: None Fibrosis: Severity: None Lymph nodes: None Other findings: Some minimal dependent atelectasis is not excluded RIGHT PLEURAL SPACE: Effusion: None Calcification: None Thickening: None Pneumothorax: None LEFT PLEURAL SPACE: Effusion: None Calcification: None Thickening: None Pneumothorax: None HEART: Heart Size: Normal Coronary calcification: None Pericardial effusion: None OTHER FINDINGS: Upper abdomen: Unremarkable Bony thorax: Normal Supraclavicular region: Normal Other: The ascending thoracic aorta at the level the main pulmonary artery measures 4.4 cm. Main pulm onary bifurcation measures 2.5 cm IMPRESSION: 1. Negative CT screening for neoplasm. 2. There is some limitation present. FOLLOW UP CT CHEST RECOMMENDATION: Screening per protocol CT LUNG RAD: Lung-Rad 1 Negative
== END | disposition home or self-care (01) ==
LOC: RADCTMAIN 14:13
PROVIDERS: ATTEND Internal Medicine Cardiovascular Disease
DX: Z12.2 Encounter for screening for malignant neoplasm of respiratory organs (principal); Z87.891 Personal history of nicotine dependence

== ENCOUNTER 2018-02-17 21:54 | Emergency (ER) | payer MEDICARE ==
[2018-02-17 22:07] VITALS: TEMP 98.8
--- NOTE | 2018-02-17 22:34 | ED ---
Extremity Problem HPI - General Chief complaint: Extremity Problem,Nontraumatic Stated complaint: R arm swelling Time Seen by Provider: 02/17/18 22:33 Source: patient Mode of arrival: ambulatory Limitations: no limitations - History of Present Illness Initial comments: Mr. Smith is a 72-year-old gentleman who presents to the emergency department today for evaluation of left forearm redness and swelling. Patient reports that he noticed some redness and mild tenderness to palpation of his left forearm earlier today. He reports that throughout the day the redness seems to spread. He reports it's mildly tender to palpation but doesn't bother him too much if he doesn't touch it. Range of motion of the elbow and wrist. Denies any associated symptoms including fevers, chills, nausea, vomiting. He can't recall any injury to this arm. He does have some chronic skin changes as well as some psoriasis over the elbow. He has no history of cellulitis, skin infections or abscesses in the past. - Related Data Home Medications Medication Instructions Recorded Confirmed Famotidine [Pepcid] 40 mg PO DAILY 06/08/15 02/17/18 Gabapentin [Neurontin] 400 mg PO QID 06/08/15 02/17/18 Cholecalciferol [Vitamin D3] 400 unit PO DAILY 06/09/15 02/17/18 Cyanocobalamin [Vitamin B-12] 1,000 mcg PO DAILY 06/09/15 02/17/18 Albuterol Inhaler [Ventolin Hfa 1 - 2 puff INHALATION RT-Q6H PRN 02/17/18 Inhaler] Aspirin 81 mg PO MOWEFR 02/17/18 02/17/18 Atorvastatin [Lipitor] 80 mg PO HS 02/17/18 02/17/18 Metoprolol Tartrate [Lopressor] 25 mg PO BID 02/17/18 02/17/18 Previous Rx's Medication Instructions Recorded Clopidogrel [Plavix] 75 mg PO DAILY #30 tab 08/05/16 Lisinopril [Zestril] 5 mg PO DAILY #30 tab 08/05/16 Cephalexin [Keflex] 500 mg PO Q6HR 7 Days #28 cap 02/18/18 Sulfamethox-Tmp 800-160Mg [Bactrim 1 tab PO Q12HR #14 tab 09/29/18 DS 800-160 mg] Allergies Allergy/AdvReac Type Severity Reaction Status Date / Time moxifloxacin [From Avelox] Allergy Unknown Verified 02/17/18 23:37 Review of Systems ROS Statement: Those systems with pertinent positive or pertinent negative responses have been documented in the HPI. ROS Other: All systems not noted in ROS Statement are negative. 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, obesity, chronic dependence and the patient has been utilizing 3 L of oxygen for COPD History of Any Multi-Drug Resistant Organisms: None Reported Past Surgical History: Heart Catheterization With Stent, Orthopedic Surgery Additional Past Surgical History / Comment(s): right knee arthroscopy, bunion on big toe on left foot, vasectomy Past Anesthesia/Blood Transfusion Reactions: No Reported Reaction Past Psychological History: No Psychological Hx Reported Smoking Status: Former smoker Past Alcohol Use History: None Reported Past Drug Use History: None Reported - Past Family History Mother Family Medical History: Diabetes Mellitus, Myocardial Infarction ([place]) Father Family Medical History: GERD/Reflux General Exam - General Exam Comments Initial Comments: GENERAL: Patient is well-developed and well-nourished. Patient is nontoxic and well- hydrated and is in no distress. HENT: Normocephalic, Atraumatic. EYES: The sclera were anicteric and conjunctiva were pink and moist. Extraocular movements were intact and pupils were equal round and reactive to light. Eyelids were unremarkable. PULMONARY: Unlabored respirations. Good breath sounds bilaterally. No audible rales rhonchi or wheezing was noted. CARDIOVASCULAR: There is a regular rate and rhythm without any murmurs gallops or rubs. ABDOMEN: Soft and nontender with normal bowel sounds. SKIN: Chronic skin changes, some changes over the elbow consistent with psoriasis. Mild erythema and induration of the left medial forearm. NEUROLOGIC: Patient is alert and oriented x3. Cranial nerves II through XII are grossly intact. Motor and sensory are also intact. Normal speech, volume and content. Symmetrical smile. MUSCULOSKELETAL: Normal extremities with adequate strength and full range of motion. No lower extremity swelling or edema. No calf tenderness. Full range of motion of the right wrist and elbow without pain Right elbow noted to have a palpable bursa, bursa not tender to palpation cellulitis does overlie this area LYMPHATICS: No significant lymphadenopathy is noted PSYCHIATRIC: Normal psychiatric evaluation. Limitations: no limitations Limitations: no limitations Course Vital Signs 02/17/18 02/18/18 22:04 00:46 Temperature 98.8 F Pulse Rate 72 71 Respiratory 18 16 Rate Blood Pressure 132/75 124/73 O2 Sat by Pulse 95 96 Oximetry Medical Decision Making - Medical Decision Making The patient was seen and evaluated history was obtained from the patient History and physical exam are consistent with a cellulitis of the left forearm, patient does have a palpable bursa in the right elbow however it is not tender to palpation. Patient has full range of motion of the elbow without pain. I have no concern for a septic joint. There is possibility of septic bursitis however find this unlikely given that it is not tender. Considering the overlying cellulitis the bursa aspiration is not possible at this time. Labs with no significant abnormalities Blood cultures were obtained First dose of Keflex and Bactrim were given in the ER the patient was discharged home with cautions for Keflex and Bactrim. Patient has had previous orthopedic surgeries with the orthopedic associates, he will contact his orthopedic surgeon on Tuesday for reevaluation. Return parameters including any worsening pain, fever or development of new or concerning symptoms were discussed with the patient is at bedside. All questions pertaining to care were answered the best my ability the patient was discharged home in stable condition. - Lab Data Result diagrams: 02/17/18 23:29 02/17/18 23:29 Lab Results 02/17/18 02/17/18 Range/Units 23:29 23:29 WBC 8.3 (3.8-10.6) k/uL RBC 4.51 (4.30-5.90) m/uL Hgb 13.6 (13.0-17.5) gm/dL Hct 43.0 (39.0-53.0) % MCV 95.3 (80.0-100.0) fL MCH 30.0 (25.0-35.0) pg MCHC 31.5 (31.0-37.0) g/dL RDW 13.2 (11.5-15.5) % Plt Count 173 (150-450) k/uL Neutrophils % 62 % Lymphocytes % 21 % Monocytes % 8 % Eosinophils % 5 % Basophils % 0 % Neutrophils # 5.2 (1.3-7.7) k/uL Lymphocytes # 1.8 (1.0-4.8) k/uL Monocytes # 0.7 (0-1.0) k/uL Eosinophils # 0.5 (0-0.7) k/uL Basophils # 0.0 (0-0.2) k/uL Hypochromasia Slight Sodium 139 (137-145) mmol/L Potassium 4.5 (3.5-5.1) mmol/L Chloride 98 (98-107) mmol/L Carbon Dioxide 35 H (22-30) mmol/L Anion Gap 6 mmol/L BUN 14 (9-20) mg/dL Creatinine 0.94 (0.66-1.25) mg/dL Est GFR (CKD-EPI)AfAm >90 (>60 ml/min/1.73 sqM) Est GFR (CKD-EPI)NonAf 80 (>60 ml/min/1.73 sqM) Glucose 97 (74-99) mg/dL Calcium 9.6 (8.4-10.2) mg/dL Disposition Clinical Impression: Cellulitis Disposition: HOME SELF-CARE Condition: Good Instructions: Cellulitis (DC), Elbow Bursitis (ED) Prescriptions: Cephalexin [Keflex] 500 mg PO Q6HR 7 Days #28 cap Sulfamethox-Tmp 800-160Mg [Bactrim DS 800-160 mg] 1 tab PO Q12HR #14 tab Is patient prescribed a controlled substance at d/c from ED?: No Referrals: Kendall Moyer MD [Primary Care Provider] - 1-2 days
--- NOTE | 2018-02-18 00:09 | XR ---
EXAMINATION TYPE: XR elbow limited RT DATE OF EXAM: 02/17/2018 COMPARISON: NONE HISTORY: Elbow pain TECHNIQUE: 2 views. FINDINGS: there is soft tissue swelling over the olecranon process. I see no fracture nor dislocation. Joint s paces are normal. IMPRESSION: Soft tissue swelling consistent with olecranon bursitis. No fracture.
[2018-02-18 00:18] LABS: Basophils % (A) 0 %; Eosinophils # (A) 0.5 k/uL (0-0.7); Eosinophils % (A) 5 %; HGB 13.6 gm/dL (13.0-17.5); Hypochromasia Slight; Lymphocytes # (A) 1.8 k/uL (1.0-4.8); Lymphocytes % (A) 21 %; MCHC 31.5 g/dL (31.0-37.0); MCV 95.3 fL (80.0-100.0); Monocytes # (A) 0.7 k/uL (0-1.0); Monocytes % (A) 8 %; Neutrophils # (A) 5.2 k/uL (1.3-7.7); Neutrophils % (A) 62 %; Platelet Count 173 k/uL (150-450); RBC 4.51 m/uL (4.30-5.90); RDW 13.2 % (11.5-15.5); WBC 8.3 k/uL (3.8-10.6)
[2018-02-18 00:27] LABS: Anion Gap 6 mmol/L; Blood Urea Nitrogen 14 mg/dL (9-20); Calcium 9.6 mg/dL (8.4-10.2); Carbon Dioxide 35 mmol/L (22-30); Chloride 98 mmol/L (98-107); Glucose 97 mg/dL (74-99); Potassium 4.5 mmol/L (3.5-5.1); Sodium 139 mmol/L (137-145)
[2018-02-18] MEDS ORDERED: SULFAMETH-TMP DS STARTER PACK 2 TAB BTL PO STA (00:37)
[2018-02-18 00:46] VITALS: BP 124/73; PULSE 71; RESP 16
== END 2018-02-18 00:50 | disposition home or self-care (01) ==
LOC: EC 21:54
DX: L03.113 Cellulitis of right upper limb (principal); J44.9 Chronic obstructive pulmonary disease, unspecified; K21.9 Gastro-esophageal reflux disease without esophagitis; E78.5 Hyperlipidemia, unspecified; I10 Essential (primary) hypertension; G62.9 Polyneuropathy, unspecified; Z95.5 Presence of coronary angioplasty implant and graft; Z99.81 Dependence on supplemental oxygen; Z87.891 Personal history of nicotine dependence; Z79.82 Long term (current) use of aspirin; Z79.899 Other long term (current) drug therapy; Z88.0 Allergy status to penicillin; Z98.890 Other specified postprocedural states
CPT/HCPCS: 36415; 80048; 85025; 87040; 99283

== ENCOUNTER → 2018-04-03 | Outpatient (CLI) | payer MEDICARE ==
--- NOTE | 2018-04-03 17:23 | CTL ---
EXAMINATION TYPE: CT Low Dose Lung DATE OF EXAM ORDERED: 04/03/2018 HISTORY: . Lung cancer screening CT DLP: [address] CTDI: 3.52 mGy Automated exposure control for dose reduction was used. SCREENING VISIT: COMPARISON: TECHNIQUE: Low dose computed tomography scan was performed through the chest at 1 mm thick sections a nd reconstructed images in the coronal plane at [address] DIAGNOSTIC QUALITY: Limited, but interpretable FINDINGS: LUNG NODULES: None. LUNGS: COPD: Severity: None Fibrosis: Severity: None Lymph nodes: None Other findings: None RIGHT PLEURAL SPACE: Effusion: None Calcification: None Thickening: None Pneumothorax: None LEFT PLEURAL SPACE: Effusion: None Calcification: None Thickening: None Pneumothorax: None HEART: Heart Size: Normal Coronary calcification: Moderate Pericardial effusion: None The ascending thoracic aorta at the main pulmonary artery is 4.0 cm. The main pulmonary artery at the bifurcation is 2.7 cm. OTHER FINDINGS: Upper abdomen: Limited. No obvious abnormality Bony thorax: Normal Supraclavicular region: Normal Other: None IMPRESSION: 1. No suspicious changes from comparison. FOLLOW UP CT CHEST RECOMMENDATION: Follow-up prior screening protocols. CT LUNG RAD: Lung-Rad 1 Negative
== END ==
LOC: RADCTMAIN 15:05
PROVIDERS: ATTEND Family Medicine
DX: Z12.2 Encounter for screening for malignant neoplasm of respiratory organs (principal); Z87.891 Personal history of nicotine dependence

== ENCOUNTER → 2018-12-14 | Outpatient (CLI) | payer MEDICARE | END | disposition home or self-care (01) | LOC: LABWHC1 08:16 | PROVIDERS: ATTEND Internal Medicine Cardiovascular Disease | DX: I25.10 Atherosclerotic heart disease of native coronary artery without angina pectoris (principal) | CPT/HCPCS: 36415; 83704 ==

== ENCOUNTER → 2020-11-12 | Outpatient (CLI) | payer MEDICARE ==
--- NOTE | 2020-11-12 11:57 | US ---
EXAMINATION TYPE: US kidneys/renal and bladder DATE OF EXAM: 11/12/2020 COMPARISON: US CLINICAL HISTORY: N18.9 Chronic kidney disease. Left renal cyst per prior US. EXAM MEASUREMENTS: Right Kidney: 11.8 x 5.8 x 5.0 cm Left Kidney: 11.9 x 6.0 x 5.0 cm Post Void Residual Volume: 18.6 mL Right Kidney: small lateral cyst = 0.9 x 0.5 x 0.6cm Left Kidney: 2 cysts seen with larger inferior cortical cyst seen = 2.9 x 2.7 x 2.8cm and smaller lat eral cyst seen = 1.1 x 1.1 x 0.8cm. Bladder: wnl Bilateral Jets seen: no, only left ureteral jet was seen within 3 minute observation Normal Post Void Residual: yes There is no evidence for hydronephrosis at this point in time. No nephrolithiasis is seen. The urin zelalem bladder is anechoic. IMPRESSION: Bilateral renal cysts. Only left ureteral jet was visualized. No right ureteral jet was seen.
== END | disposition home or self-care (01) ==
LOC: RADUSWWP 09:30
PROVIDERS: ATTEND Family Medicine
DX: N28.1 Cyst of kidney, acquired (principal); N18.9 Chronic kidney disease, unspecified
CPT/HCPCS: 76770

== ENCOUNTER → 2022-08-12 | Outpatient (CLI) | payer MEDICARE ==
--- NOTE | 2022-08-12 15:32 | XR ---
EXAMINATION TYPE: XR Hip LT and AP Pelvis DATE OF EXAM: 08/12/2022 3:20 PM INDICATION: Patient age:Male; 77 years old; Reason for study: M25.552; [facility]. COMPARISON: None. TECHNIQUE: The left hip was examined in the frontal and lateral projections and a AP pelvis. FINDINGS: No acute fracture or dislocation. There is medial joint space narrowing with acetabular scl erosis and marginal osteophytosis of both hips. No pelvic calcifications. Multilevel degenerative marlin nges of visualized spine. Vascular sclerosis. IMPRESSION: 1. No acute osseous pathology. 2. 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
== END | disposition home or self-care (01) ==
LOC: RADXRMAIN 15:03
PROVIDERS: ATTEND Family Medicine
DX: M16.0 Bilateral primary osteoarthritis of hip (principal)
CPT/HCPCS: 73502

== ENCOUNTER 2023-03-13 21:30 | Observation (INO) | payer MEDICARE ==
[2023-03-13] MEDS ORDERED: MAGNESIUM SULFATE-D5W PMX 1 GM in DEXTROSE/WATER 1 100ML.BAG IVPB STA (22:17)
[2023-03-13] MEDS ORDERED: methylPREDNISolone SOD SUCCI 125 MG/2 ML VIAL IV STA (22:17)
[2023-03-13] MEDS ORDERED: IPRATROPIUM-ALBUTEROL 3 ML NEB INHALATION STA (22:17)
--- NOTE | 2023-03-13 23:10 | ED ---
SOB HPI - General Chief Complaint: Shortness of Breath Stated Complaint: Weakness Time Seen by Provider: 03/13/23 21:45 Source: patient Mode of arrival: wheelchair Limitations: no limitations - History of Present Illness Initial Comments: 77-year-old male past history of COPD and atherosclerotic coronary artery disease who presents emergency Department with shortness of breath. Patient does wear 2 L of oxygen as needed however states over the past month he has been wearing oxygen at all times. He has had exertional dyspnea. Admits to a nonproductive cough. He does have chest pain which he describes as a pressure sensation. He saw his bet taker who placed him on a daily antibiotic and a long taper of steroids. States he has been taking the medications as directed however finished all of them and still has symptoms. He denies sick contacts. No fevers. He has been using his nebulizer twice daily without any improvement in his symptoms. He denies any abdominal pain. No lower extremity swelling. No history of congestive heart failure. Denies any history of DVT or PE. No other alleviating, precipitating or modifying factors - Related Data Home Medications Medication Instructions Recorded Confirmed Famotidine [Pepcid] 40 mg PO DAILY 06/08/15 02/17/18 Gabapentin [Neurontin] 400 mg PO QID 06/08/15 02/17/18 Cholecalciferol [Vitamin D3 (10 400 unit PO DAILY 06/09/15 02/17/18 Mcg = 400 Iu)] Cyanocobalamin [Vitamin B-12] 1,000 mcg PO DAILY 06/09/15 02/17/18 Albuterol Inhaler [Ventolin Hfa 1 - 2 puff INHALATION RT-Q6H PRN 02/17/18 02/17/18 Inhaler] Aspirin 81 mg PO MOWEFR 02/17/18 02/17/18 Atorvastatin [Lipitor] 80 mg PO HS 02/17/18 02/17/18 Metoprolol Tartrate [Lopressor] 25 mg PO BID 02/17/18 02/17/18 Previous Rx's Medication Instructions Recorded Clopidogrel [Plavix] 75 mg PO DAILY #30 tab 08/05/16 lisinopriL [Zestril] 5 mg PO DAILY #30 tab 08/05/16 Cephalexin [Keflex] 500 mg PO Q6HR 7 Days #28 cap 02/18/18 Sulfamethox-Tmp 800-160Mg [Bactrim 1 tab PO Q12HR #14 tab 02/18/18 DS 800-160 mg] Allergies Allergy/AdvReac Type Severity Reaction Status Date / Time moxifloxacin [From Avelox] Allergy Unknown Verified 03/13/23 21:43 Review of Systems ROS Statement: Those systems with pertinent positive or pertinent negative responses have been documented in the HPI. ROS Other: All systems not noted in ROS Statement are negative. 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, obesity, chronic dependence and the patient has been utilizing 3 L of oxygen for COPD History of Any Multi-Drug Resistant Organisms: None Reported Past Surgical History: Heart Catheterization With Stent, Orthopedic Surgery Additional Past Surgical History / Comment(s): right knee arthroscopy, bunion on big toe on left foot, vasectomy Past Anesthesia/Blood Transfusion Reactions: No Reported Reaction Past Psychological History: No Psychological Hx Reported Past Alcohol Use History: None Reported Past Drug Use History: None Reported - Past Family History Mother Family Medical History: Diabetes Mellitus, Myocardial Infarction ([place]) Father Family Medical History: GERD/Reflux General Exam Limitations: no limitations General appearance: alert, in no apparent distress Head exam: Present: atraumatic, normocephalic, normal inspection Eye exam: Present: normal appearance, PERRL, EOMI. Absent: scleral icterus, con junctival injection, periorbital swelling ENT exam: Present: normal exam, mucous membranes moist Neck exam: Present: normal inspection. Absent: tenderness, meningismus, lymphadenopathy Respiratory exam: Present: accessory muscle use, decreased breath sounds, other (Tachypnea). Absent: respiratory distress, wheezes, rales, rhonchi, stridor Cardiovascular Exam: Present: normal rhythm, tachycardia, normal heart sounds. Absent: systolic murmur, diastolic murmur, rubs, gallop, clicks GI/Abdominal exam: Present: soft, normal bowel sounds. Absent: distended, tenderness, guarding, rebound, rigid Extremities exam: Present: normal inspection, full ROM, normal capillary refill. Absent: tenderness, pedal edema, joint swelling, calf tenderness Back exam: Present: normal inspection Neurological exam: Present: alert, oriented X3, CN II-XII intact Psychiatric exam: Present: normal affect, normal mood Skin exam: Present: warm, dry, intact, normal color. Absent: rash Course Vital Signs 03/13/23 03/13/23 03/13/23 21:40 21:52 22:06 Temperature 99.2 F Pulse Rate 120 H 130 H Respiratory 28 H 30 H 30 H Rate Blood Pressure 171/84 134/75 O2 Sat by Pulse 93 L 95 Oximetry 03/13/23 03/13/23 03/13/23 22:41 23:33 23:34 Temperature Pulse Rate 130 H 120 H 117 H Respiratory 30 H 26 H Rate Blood Pressure 134/78 124/98 O2 Sat by Pulse 95 95 Oximetry 03/13/23 03/14/23 23:44 01:30 Temperature Pulse Rate 121 H 106 H Respiratory 28 H Rate Blood Pressure 103/55 O2 Sat by Pulse 94 L Oximetry Medical Decision Making - Medical Decision Making Was pt. sent in by a medical professional or institution (, PA, BORDER INSPECTOR, urgent care, hospital, or long-term...) When possible be specific @ -No Did you speak to anyone other than the patient for history (EMS, parent, family, police, friend...)? What history was obtained from this source @ -Spoke with the for history Did you review nursing and triage notes (agree or disagree)? Why? @ -I reviewed and agree with nursing and triage notes Were old charts reviewed (outside hosp., previous admission, EMS record, old EKG, old radiological studies, urgent care reports/EKG's, long-term records)? Report findings @ -I reviewed the results of the patient's heart cath from 2018 where he received 2 stents Differential Diagnosis (chest pain, altered mental status, abdominal pain women, abdominal pain men, vaginal bleeding, weakness, fever, dyspnea, syncope, h eadache, dizziness, GI bleed, back pain, seizure, CVA, palpatations, mental health, musculoskeletal)? @ -Differential Dyspnea: Coronary syndrome, arrhythmia, tamponade, asthma, COPD, pulmonary embolism, pneumonia, pneumothorax, pulmonary effusion, anaphylaxis, diabetic ketoacidosis, flailed chest, pulmonary contusion, diaphragmatic rupture, anemia, neuromuscular, this is not meant to be an all-inclusive list. EKG interpreted by me (3pts min.). @ - Yes and demonstrates a tachycardic rhythm with significant artifact. Question whether there is P waves. Rate of 134. QRS 105. QTC of 363 Repeat performed at 12:51 AM demonstrating sinus tachycardia with a rate of 108. IA interval 168. QRS 114. QTC of 375 X-rays interpreted by me (1pt min.). @ -Yes and demonstrates no acute process CT interpreted by me (1pt min.). @ -Yes and does not demonstrate PE. Positive for emphysema U/S interpreted by me (1pt. min.). @ -None done What testing was considered but not performed or refused? (CT, X-rays, U/S, labs)? Why? @ -None What meds were considered but not given or refused? Why? @ -None Did you discuss the management of the patient with other professionals (professionals i.e. , PA, BORDER INSPECTOR, lab, RT, psych nurse, hospital social worker, program management intern, teacher, geographic area intelligence officer, window caser)? Give summary @ -Spoke with Dr. Azar who will admit patient Was smoking cessation discussed for >3mins.? @ -No Was critical care preformed (if so, how long)? @ -No Were there social determinants of health that impacted care today? How? (Homelessness, low income, unemployed, alcoholism, drug addiction, transportation, low edu. Level, literacy, decrease access to med. care, group home, rehab)? @ -No Was there de-escalation of care discussed even if they declined (Discuss DNR or withdrawal of care, Hospice)? DNR status @ -No What co-morbidities impacted this encounter? (DM, HTN, Smoking, COPD, CAD, Cancer, CVA, ARF, Chemo, Hep., AIDS, mental health diagnosis, sleep apnea, morbid obesity)? @ -COPD, atherosclerotic coronary artery disease, obesity Was patient admitted / discharged? Hospital course, mention meds given and route, prescriptions, significant lab abnormalities, going to OR and other pertinent info. @ -Upon arrival patient was placed into room 10. A thorough history and physical exam is performed. He does have tachypnea and decreased breath sounds. He is saturating 93% on room air. He is placed on 2 L of oxygen. Breathing treatment is administered. IV is established and the patient is given a gram of magnesium and 125 of Solu-Medrol. Laboratory studies are conducted. D-dimer is elevated and therefore the patient is sent for CT. CT does not demonstrate any PE. As the patient has already gone through outpatient management I did feel that the patient requires admission at this time. He was agreeable to this. I spoke with Dr. Azar who agreed to admit the patient. Pulmonology will be placed on consult and troponins will be trended Undiagnosed new problem with uncertain prognosis? @ -No Drug Therapy requiring intensive monitoring for toxicity (Heparin, Nitro, Insulin, Cardizem)? @ -No Were any procedures done? @ -No Diagnosis/symptom? @ -Acute respiratory insufficiency, COPD exacerbation, failed outpatient m anagement Acute, or Chronic, or Acute on Chronic? @ -Acute on chronic Uncomplicated (without systemic symptoms) or Complicated (systemic symptoms)? @ -Complicated Side effects of treatment? @ -No Exacerbation, Progression, or Severe Exacerbation? @ -Yes Poses a threat to life or bodily function? How? (Chest pain, [place], [place], pneumonia, PE, COPD, DKA, ARF, appy, cholecystitis, CVA, Diverticulitis, Homicidal, Suicidal, threat to staff... and all critical care pts) @ -No - Lab Data Result diagrams: 03/13/23 22:17 03/13/23 22:17 Lab Results 03/13/23 03/13/23 03/13/23 Range/Units 22:17 22:17 22:17 WBC 9.3 (3.8-10.6) k/uL RBC 4.53 (4.30-5.90) m/uL Hgb 13.8 (13.0-17.5) gm/dL Hct 43.2 (39.0-53.0) % MCV 95.2 (80.0-100.0) fL MCH 30.5 (25.0-35.0) pg MCHC 32.1 (31.0-37.0) g/dL RDW 13.1 (11.5-15.5) % Plt Count 240 (150-450) k/uL MPV 9.0 Neutrophils % 80 % Lymphocytes % 9 % Monocytes % 8 % Eosinophils % 1 % Basophils % 0 % Neutrophils # 7.4 (1.3-7.7) k/uL Lymphocytes # 0.8 L (1.0-4.8) k/uL Monocytes # 0.7 (0-1.0) k/uL Eosinophils # 0.1 (0-0.7) k/uL Basophils # 0.0 (0-0.2) k/uL PT 9.8 L (10.0-12.5) sec INR 0.9 (<1.2) APTT 24.3 (22.0-30.0) sec D-Dimer 1.01 H (<0.60) mg/L FEU Sodium 135 L (137-145) mmol/L Potassium 4.5 (3.5-5.1) mmol/L Chloride 97 L (98-107) mmol/L Carbon Dioxide 28 (22-30) mmol/L Anion Gap 10 mmol/L BUN 23 H (9-20) mg/dL Creatinine 0.96 (0.66-1.25) mg/dL Est GFR (CKD-EPI)AfAm 87 (>60 ml/min/1.73 sqM) Est GFR (CKD-EPI)NonAf 75 (>60 ml/min/1.73 sqM) Glucose 133 H (74-99) mg/dL Plasma Lactic Acid Antonio (0.7-2.0) mmol/L Calcium 9.8 (8.4-10.2) mg/dL Magnesium 1.7 (1.6-2.3) mg/dL Total Bilirubin 0.7 (0.2-1.3) mg/dL AST 43 (17-59) U/L ALT 23 (4-49) U/L Alkaline Phosphatase 99 (38-126) U/L Troponin I (0.000-0.034) ng/mL NT-Pro-B Natriuret Pep 104 pg/mL Total Protein 7.1 (6.3-8.2) g/dL Albumin 4.0 (3.5-5.0) g/dL Influenza Type A (PCR) (Not Detectd) Influenza Type B (PCR) (Not Detectd) RSV (PCR) (Not Detectd) SARS-CoV-2 (PCR) (Not Detectd) 03/13/23 03/13/23 03/13/23 Range/Units 22:17 22:17 22:18 WBC (3.8-10.6) k/uL RBC (4.30-5.90) m/uL Hgb (13.0-17.5) gm/dL Hct (39.0-53.0) % MCV (80.0-100.0) fL MCH (25.0-35.0) pg MCHC (31.0-37.0) g/dL RDW (11.5-15.5) % Plt Count (150-450) k/uL MPV Neutrophils % % Lymphocytes % % Monocytes % % Eosinophils % % Basophils % % Neutrophils # (1.3-7.7) k/uL Lymphocytes # (1.0-4.8) k/uL Monocytes # (0-1.0) k/uL Eosinophils # (0-0.7) k/uL Basophils # (0-0.2) k/uL PT (10.0-12.5) sec INR (<1.2) APTT (22.0-30.0) sec D-Dimer (<0.60) mg/L FEU Sodium (137-145) mmol/L Potassium (3.5-5.1) mmol/L Chloride (98-107) mmol/L Carbon Dioxide (22-30) mmol/L Anion Gap mmol/L BUN (9-20) mg/dL Creatinine (0.66-1.25) mg/dL Est GFR (CKD-EPI)AfAm (>60 ml/min/1.73 sqM) Est GFR (CKD-EPI)NonAf (>60 ml/min/1.73 sqM) Glucose (74-99) mg/dL Plasma Lactic Acid Antonio 1.3 (0.7-2.0) mmol/L Calcium (8.4-10.2) mg/dL Magnesium (1.6-2.3) mg/dL Total Bilirubin (0.2-1.3) mg/dL AST (17-59) U/L ALT (4-49) U/L Alkaline Phosphatase (38-126) U/L Troponin I 0.014 (0.000-0.034) ng/mL NT-Pro-B Natriuret Pep pg/mL Total Protein (6.3-8.2) g/dL Albumin (3.5-5.0) g/dL Influenza Type A (PCR) Not Detected (Not Detectd) Influenza Type B (PCR) Not Detected (Not Detectd) RSV (PCR) Not Detected (Not Detectd) SARS-CoV-2 (PCR) Not Detected (Not Detectd) Disposition Clinical Impression: Respiratory insufficiency Disposition: ADMITTED IP TO THIS HOSP Condition: Stable Is patient prescribed a controlled substance at d/c from ED?: No Time of Disposition: 00:56 Decision to Admit Reason: Admit from EC Decision Date: 03/14/23 Decision Time: 00:56
[2023-03-13 23:12] LABS: Basophils % (A) 0 %; Eosinophils # (A) 0.1 k/uL (0-0.7); Eosinophils % (A) 1 %; HCT 43.2 % (39.0-53.0); HGB 13.8 gm/dL (13.0-17.5); Lymphocytes # (A) 0.8 k/uL (1.0-4.8); Lymphocytes % (A) 9 %; MCH 30.5 pg (25.0-35.0); MCHC 32.1 g/dL (31.0-37.0); MCV 95.2 fL (80.0-100.0); Monocytes # (A) 0.7 k/uL (0-1.0); Monocytes % (A) 8 %; Neutrophils # (A) 7.4 k/uL (1.3-7.7); Neutrophils % (A) 80 %; Platelet Count 240 k/uL (150-450); RBC 4.53 m/uL (4.30-5.90); RDW 13.1 % (11.5-15.5); WBC 9.3 k/uL (3.8-10.6)
[2023-03-13 23:22] LABS: INR 0.9 (<1.2); Partial Thromboplastin Time 24.3 sec (22.0-30.0); Prothrombin Time 9.8 sec (10.0-12.5)
[2023-03-13 23:30] LABS: ALT 23 U/L (4-49); AST 43 U/L (17-59); African American GFR (CKD) 87 (>60 ml/min/1.73 sqM); Alkaline Phosphatase 99 U/L (38-126); Anion Gap 10 mmol/L; Blood Urea Nitrogen 23 mg/dL (9-20); Calcium 9.8 mg/dL (8.4-10.2); Carbon Dioxide 28 mmol/L (22-30); Chloride 97 mmol/L (98-107); Glucose 133 mg/dL (74-99); Magnesium 1.7 mg/dL (1.6-2.3); Non-African American GFR(CKD) 75 (>60 ml/min/1.73 sqM); Potassium 4.5 mmol/L (3.5-5.1); Sodium 135 mmol/L (137-145); Total Bilirubin 0.7 mg/dL (0.2-1.3); Total Protein 7.1 g/dL (6.3-8.2)
[2023-03-13 23:37] LABS: NT-Pro-B-Type Natriuretic Pept 104 pg/mL
--- NOTE | 2023-03-14 00:24 | XR ---
EXAM: XR Chest, 1 View CLINICAL HISTORY: ITS.REASON XR Reason: difficulty breathing TECHNIQUE: Frontal view of the chest. COMPARISON: No relevant prior studies available. FINDINGS: Lungs: Unremarkable. No consolidation. Pleural space: Unremarkable. No pneumothorax. Heart: Unremarkable. No cardiomegaly. Mediastinum: Unremarkable. Bones/joints: Unremarkable. IMPRESSION: Normal chest x-ray.
--- NOTE | 2023-03-14 00:34 | CT ---
EXAM: CT Angiography Chest With Intravenous Contrast CLINICAL HISTORY: ITS.REASON CT Reason: sob TECHNIQUE: Axial computed tomographic angiography images of the chest with intravenous contrast. CTDI is 40.38 mGy and DLP is 1173.4 mGy-cm. This CT exam was performed using one or more of the following dose reduction techniques: automated exposure control, adjustment of the mA and/or kV according to patient size, and/or use of iterative reconstruction technique. MIP reconstructed images were created and reviewed. COMPARISON: No relevant prior studies available. FINDINGS: Pulmonary arteries: Unremarkable. No pulmonary embolism. Aorta: Atherosclerotic changes of the aorta. No thoracic aortic aneurysm. Lungs: Unremarkable. No mass. No consolidation. Pleural space: Moderate centrilobular emphysema. No focal infiltrate, pleural effusion, or pneumothorax. Heart: Unremarkable. No cardiomegaly. No significant pericardial effusion. No evidence of RV dysfunction. Bones/joints: Degenerative changes of the spine. No acute fracture. No dislocation. Soft tissues: Unremarkable. Lymph nodes: Unremarkable. No enlarged lymph nodes. IMPRESSION: Moderate centrilobular emphysema. No focal infiltrate, pleural effusion, or pneumothorax.
[2023-03-14] MEDS ORDERED: NALOXONE 0.4 MG/ML 1 ML VIAL IV PRN (01:03)
[2023-03-14] MEDS ORDERED: IPRATROPIUM-ALBUTEROL 3 ML NEB INHALATION PRN (02:28)
--- NOTE | 2023-03-14 02:29 | P.HPIM ---
History of Present Illness H&P Date: 03/14/23 Patient is a 77-year-old male with a PMH of COPD on 3 L nasal cannula oxygen continuously at home, hypertension, hyperlipidemia, and GERD who presents to the emergency room with complaints of shortness of breath, cough, and chest tightness. Patient reports he has been experiencing these symptoms over the past several weeks for which she was seen at his pharmaceutical salesperson Dr. Sierra's office 2- 3 weeks ago and was started on a steroid taper and a course of antibiotics which she has finished a few days ago. Reports minimal improvement in his symptoms with cough productive of yellow-green phlegm. Reports that the chest tightness is chronic and has been present over the past several years but is only somewhat worsened now. Denied experiencing fever, nausea, vomiting, abdominal pain, diarrhea. In the emergency room, a chest CTA revealed moderate centrilobular emphysema. EKG showed sinus tachycardia initially at 134 bpm and subsequently at 108 bpm with inferior lead Q waves noted. Laboratory evaluation was remarkable for lactic acid 1.3, troponin 0.014, d-dimer 1.01, sodium 135, proBNP 104, with viral panel negative. ED documentation reviewed and case discussed with ED provider. Review of systems: Pertinent positives and negatives as discussed in HPI, a complete review of systems was performed and all other systems are negative. Physical examination: Vital signs reviewed General: non toxic, no distress, appears at stated age, morbidly obese Derm: no unusual rashes/lesions, warm Head: atraumatic, normocephalic, symmetric Eyes: EOMI, no lid lag, anicteric sclera, pupils equal round reactive to light ENT: Nose and ears atraumatic Neck: No cervical lymphadenopathy, trachea midline, supple Mouth: no lip lesion, mucus membranes moist Cardiovascular: S1S2 reg, no murmur, positive dorsalis pedis pulse bilateral, no edema Lungs: Poor air entry bilaterally with expiratory wheezing appreciated without rales or rhonchi, no accessory muscle use Abdominal: soft, nontender to palpation, no guarding Ext: muscle strength 5 out of 5 in all 4 extremities grossly, no gross muscle atrophy, no contractures, Neuro: CN II-XI grossly intact, no gross focal neuro deficits Psych: Alert, oriented, appropriate affect Assessment: Acute COPD exacerbation Chest tightness, chronic with low suspicion for ACS at this time Chronic conditions: Hypertension, hyperlipidemia Imaging: In the emergency room, a chest CTA revealed moderate centrilobular emphysema. EKG showed sinus tachycardia initially at 134 bpm and subsequently at 108 bpm with inferior lead Q waves noted. Data Review: Laboratory evaluation was remarkable for lactic acid 1.3, troponin 0.014, d- dimer 1.01, sodium 135, proBNP 104, with viral panel negative. 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, obesity, chronic dependence and the patient has been utilizing 3 L of oxygen for COPD History of Any Multi-Drug Resistant Organisms: None Reported Past Surgical History: Heart Catheterization With Stent, Orthopedic Surgery Additional Past Surgical History / Comment(s): right knee arthroscopy, bunion on big toe on left foot, vasectomy Past Anesthesia/Blood Transfusion Reactions: No Reported Reaction Past Psychological History: No Psychological Hx Reported Past Alcohol Use History: None Reported Past Drug Use History: None Reported - Past Family History Mother Family Medical History: Diabetes Mellitus, Myocardial Infarction ([place]) Father Family Medical History: GERD/Reflux Medications and Allergies Home Medications Medication Instructions Recorded Confirmed Type Famotidine [Pepcid] 40 mg PO DAILY 06/08/15 02/17/18 History Gabapentin [Neurontin] 400 mg PO QID 06/08/15 02/17/18 History Cholecalciferol [Vitamin D3 (10 400 unit PO DAILY 06/09/15 02/17/18 History Mcg = 400 Iu)] Cyanocobalamin [Vitamin B-12] 1,000 mcg PO DAILY 06/09/15 02/17/18 History Clopidogrel [Plavix] 75 mg PO DAILY #30 tab 08/05/16 02/17/18 Rx lisinopriL [Zestril] 5 mg PO DAILY #30 tab 08/05/16 02/17/18 Rx Albuterol Inhaler [Ventolin Hfa 1 - 2 puff INHALATION RT-Q6H PRN 02/17/18 02/17/18 History Inhaler] Aspirin 81 mg PO MOWEFR 02/17/18 02/17/18 History Atorvastatin [Lipitor] 80 mg PO HS 02/17/18 02/17/18 History Metoprolol Tartrate [Lopressor] 25 mg PO BID 02/17/18 02/17/18 History Cephalexin [Keflex] 500 mg PO Q6HR 7 Days #28 cap 02/18/18 Rx Sulfamethox-Tmp 800-160Mg [Bactrim 1 tab PO Q12HR #14 tab 02/18/18 Rx DS 800-160 mg] Allergies Allergy/AdvReac Type Severity Reaction Status Date / Time moxifloxacin [From Avelox] Allergy Unknown Verified 03/13/23 21:43 Physical Exam Vitals: Vital Signs Temp Pulse Resp BP Pulse Ox 03/14/23 01:30 106 H 28 H 103/55 94 L 03/13/23 23:44 121 H 03/13/23 23:34 117 H 03/13/23 23:33 120 H 26 H 124/98 95 03/13/23 22:41 130 H 30 H 134/78 95 03/13/23 22:06 130 H 30 H 134/75 95 03/13/23 21:52 30 H 03/13/23 21:40 99.2 F 120 H 28 H 171/84 93 L Intake and Output 03/13/23 03/13/23 03/14/23 14:59 22:59 06:59 Other: Weight 139.706 kg Results CBC & Chem 7: 03/13/23 22:17 03/13/23 22:17 Labs: Abnormal Lab Results - Last 24 Hours (Table) 03/13/23 03/13/23 03/13/23 Range/Units 22:17 22:17 22:17 Lymphocytes # 0.8 L (1.0-4.8) k/uL PT 9.8 L (10.0-12.5) sec D-Dimer 1.01 H (<0.60) mg/L FEU Sodium 135 L (137-145) mmol/L Chloride 97 L (98-107) mmol/L BUN 23 H (9-20) mg/dL Glucose 133 H (74-99) mg/dL
[2023-03-14] MEDS ORDERED: IPRATROPIUM-ALBUTEROL 3 ML NEB INHALATION SCH (04:00)
--- NOTE | 2023-03-14 06:50 | P.CNPUL ---
History of Present Illness Consult date: 03/14/23 Requesting physician: Alberta London Reason for consult: COPD Chief complaint: Progressively worsening shortness of breath over the last month History of present illness: I am seeing this patient in consultation today 03/14/2023 for acute COPD exacerbation. Patient is a 77-year-old white male with past medical history significant for severe oxygen dependent COPD, hypertension, hyperlipidemia, coronary artery disease, Raynaud's, and former tobacco smoker. Patient's primary care provider is Dr. Kohler. He does follow the pulmonary office with Dr. Sierra for management of his severe COPD. Patient started experiencing presently worsening shortness of breath, chest congestion, and a nonproductive cough starting approximately one month ago. Patient was recently treated for COPD exacerbation in the office with a combination of Augmentin and prednisone burst taper. He was also switched to Trelegy inhaler. He states that he has not been using his Trelegy inhaler daily as he should. Patient is currently sitting up in bed, on 2 L/m nasal cannula, in no acute distress. He denies any fevers, chills, chest pain. Denies sick contacts. Denies any heart palpitations, lightheadedness, syncope, or increased lower extremity edema. Chest x-ray on arrival showed no acute cardiopulmonary process. D-dimer was elevated so a follow-up chest CTA was done to rule out pulmonary embolism. No obvious central pulmonary embolism was seen. There is moderate central lobar emphysema. No focal infiltrates, pleural effusion, or pneumothorax. CBC on arrival was unremarkable. No leukocytosis. BMP on arrival was also unremarkable. Troponin 0.014. NT proBNP not elevated. ECG shows sinus tachycardia and possible inferior myocardial infarction, probably old, with Q waves in II, III, and aVF. Negative for influenza, RSV, COVID-19. Afebrile. Patient is hemodynamically stable. Review of Systems REVIEW OF SYSTEMS: CONSTITUTIONAL: Denies any recent significant weight loss or weight gain. EYES: Denies change in vision. EARS, NOSE, MOUTH, THROAT: Denies headaches, denies sore throat. CARDIOVASCULAR: Denies chest pain, palpitations or syncopal episodes. RESPIRATORY: See HPI GASTROINTESTINAL: Denies change in appetite, abdominal pain, nausea and vomiting, or diarrhea GENITOURINARY: Denies hematuria, denies infections. MUSKULOSKELETAL: Denies pain, denies swelling. INTEGUMENTARY: Denies rash, denies eczema. NEUROLOGICAL: Denies recent memory loss, no recent seizure activity. PSYCHIATRIC: Denies anxiety, denies depression. 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, obesity, chronic dependence and the patient has been utilizing 3 L of oxygen for COPD History of Any Multi-Drug Resistant Organisms: None Reported Past Surgical History: Heart Catheterization With Stent, Orthopedic Surgery Additional Past Surgical History / Comment(s): right knee arthroscopy, bunion on big toe on left foot, vasectomy Past Anesthesia/Blood Transfusion Reactions: No Reported Reaction Past Psychological History: No Psychological Hx Reported Past Alcohol Use History: None Reported Past Drug Use History: None Reported - Past Family History Mother Family Medical History: Diabetes Mellitus, Myocardial Infarction ([place]) Father Family Medical History: GERD/Reflux Medications and Allergies Home Medications Medication Instructions Recorded Confirmed Type Albuterol Inhaler [Ventolin Hfa 1 - 2 puff INHALATION RT-Q4H 02/17/18 03/14/23 History Inhaler] Aspirin 81 mg PO MOWEFR@2100 02/17/18 03/14/23 History Atorvastatin [Lipitor] 80 mg PO HS 02/17/18 03/14/23 History Metoprolol Tartrate [Lopressor] 25 mg PO HS 02/17/18 03/14/23 History Fluticasone/Umeclidin/Vilanter 1 puff INHALATION RT-HS 03/14/23 03/14/23 History [Trelegy Ellipta 200-62.5-25] lisinopriL [Lisinopril] 10 mg PO HS 03/14/23 03/14/23 History Allergies Allergy/AdvReac Type Severity Reaction Status Date / Time moxifloxacin [From Avelox] Allergy Unknown Verified 03/14/23 06:38 Physical Exam Vitals: Vital Signs Temp Pulse Resp BP Pulse Ox 03/14/23 01:30 106 H 28 H 103/55 94 L 03/13/23 23:44 121 H 03/13/23 23:34 117 H 03/13/23 23:33 120 H 26 H 124/98 95 03/13/23 22:41 130 H 30 H 134/78 95 03/13/23 22:06 130 H 30 H 134/75 95 03/13/23 21:52 30 H 03/13/23 21:40 99.2 F 120 H 28 H 171/84 93 L Intake and Output 03/13/23 03/13/23 03/14/23 14:59 22:59 06:59 Other: Weight 139.706 kg GENERAL EXAM: Alert, 77-year-old morbidly obese white male , comfortable in no apparent distress. HEAD: Normocephalic and atraumatic EYES: Normal reaction of pupils, equal size. NOSE: Clear with pink turbinates. THROAT: No erythema or exudates. NECK: No masses, no JVD. CHEST: No chest wall deformity. LUNGS: Equal air entry with markedly diminished lung sounds throughout along with expiratory wheezes, on 2 L/m nasal cannula, No conversational dyspnea or accessory muscle use.. CVS: S1 and S2 normal with no audible murmur, regular rhythm. No extra heart sounds ABDOMEN: No hepatosplenomegaly, active bowel sounds, no guarding or rigidity. SPINE: No scoliosis or deformity SKIN: No rashes CENTRAL NERVOUS SYSTEM: No focal deficits, tone is normal in all 4 extremities. EXTREMITIES: There is no peripheral edema, clubbing, or cyanosis. Peripheral pu lses are intact. Results - Laboratory Findings CBC and BMP: 03/13/23 22:17 03/13/23 22:17 PT/INR, D-dimer PT 9.8 sec (10.0-12.5) L 03/13/23 22:17 INR 0.9 (<1.2) 03/13/23 22:17 D-Dimer 1.01 mg/L FEU (<0.60) H 03/13/23 22:17 Abnormal lab findings: Abnormal Labs 03/13/23 03/13/23 03/13/23 22:17 22:17 22:17 Lymphocytes # 0.8 L PT 9.8 L D-Dimer 1.01 H Sodium 135 L Chloride 97 L BUN 23 H Glucose 133 H - Diagnostic Findings Chest x-ray: image reviewed Assessment and Plan Assessment: Acute COPD exacerbation, chest x-ray shows no acute cardiopulmonary processes. Negative for influenza, RSV, COVID-19. Chronic hypoxemic respiratory failure, currently on 2 L/m nasal cannula Sinus tachycardia Benign essential hypertension Hyperlipidemia Coronary artery disease, with previous PCI/stenting Morbid obesity, with a BMI of 45.5 kg/m, with KEVIN-like features Severe chronic obstructive pulmonary disease, with an FEV1 38% of predicted Former tobacco smoker Plan: Patient's medications, labs, chest x-ray reviewed Continue supplemental oxygen Start patient on combination of DuoNeb's, Symbicort inhaler, and IV Solu-Medrol Patient educated on the need to take his maintenance inhaler daily We will continue to follow I have personally seen and examined the patient, performed the documentation and the assessment and plan as written. Number of minutes spent on the visit:20 There is a joint evaluation that was done along with a nurse practitioner. The patient was seen in the emergency Department. The patient was seen in more than 30 minutes. The patient has a typical COPD exacerbation. The patient will be admitted for an acute COPD exacerbation management and the patient will be started on examination bronchodilators and steroids. I had a discussion with him. I also met his family including the and the son at the bedside. The blood work is essentially negative. Troponins are negative. ProBNP is nonelevated. I did not appreciate any abnormalities on the CAT scan of the moderate centrilobular emphysema. No evidence of any infiltration no evidence of pleural effusion or pneumothorax. Discussed the case with the family. We'll continue same management. We'll admit this patient to the hospital and optimize his COPD. Time with Patient: Greater than 30
[2023-03-14 06:54] LABS: Glucose,Whole Blood 193 mg/dL (70-110)
[2023-03-14] MEDS: INSULIN ASPART (NovoLOG) 100 UNIT/ML VIAL SQ SCH ×4 (07:47→21:16)
[2023-03-14] MEDS ORDERED: methylPREDNISolone SOD SUCCI 40 MG/ML 1 ML VIAL IV SCH (08:00)
[2023-03-14] MEDS: SYMBICORT 160-4.5 MCG INHALER INHALATION SCH ×2 (08:38→21:27)
[2023-03-14] MEDS: IPRATROPIUM-ALBUTEROL 3 ML NEB INHALATION SCH ×4 (08:38→21:27)
[2023-03-14] MEDS: ENOXAPARIN 40 MG/0.4 ML SYRINGE SQ SCH (09:41)
[2023-03-14 12:39] LABS: Glucose,Whole Blood 168 mg/dL (70-110)
[2023-03-14] MEDS: methylPREDNISolone SOD SUCCI 125 MG/2 ML VIAL IV SCH ×2 (12:50→17:47)
[2023-03-14 17:41] LABS: Glucose,Whole Blood 172 mg/dL (70-110)
[2023-03-14] MEDS ORDERED: NON FORMULARY DRUG (Fluticasone/Umeclidin/Vilanter [Trelegy Ellipta 200-62.5-25] 1 EACH Bl INHALATION SCH (20:00)
[2023-03-14] MEDS: lisinopriL 10 MG TAB PO SCH (20:18)
[2023-03-14] MEDS: ATORVASTATIN 80 MG TAB PO SCH (20:18)
[2023-03-14] MEDS: METOPROLOL TARTRATE 25 MG TAB PO SCH (20:18)
[2023-03-14 20:56] LABS: Glucose,Whole Blood 152 mg/dL (70-110)
[2023-03-14] MEDS ORDERED: ASPIRIN 81 MG PO SCH (21:00)
[2023-03-15] MEDS: methylPREDNISolone SOD SUCCI 125 MG/2 ML VIAL IV SCH ×4 (06:36→17:53)
[2023-03-15 06:40] LABS: Glucose,Whole Blood 138 mg/dL (70-110)
[2023-03-15] MEDS: INSULIN ASPART (NovoLOG) 100 UNIT/ML VIAL SQ SCH ×4 (07:30→21:57)
[2023-03-15] MEDS: SYMBICORT 160-4.5 MCG INHALER INHALATION SCH ×2 (08:12→20:40)
[2023-03-15] MEDS: IPRATROPIUM-ALBUTEROL 3 ML NEB INHALATION SCH ×4 (08:12→20:40)
[2023-03-15] MEDS: ENOXAPARIN 40 MG/0.4 ML SYRINGE SQ SCH (08:34)
[2023-03-15 10:49] LABS: Basophils # (A) 0.03 X 10*3/uL (0.00-0.10); Basophils % (A) 0.3 %; Eosinophils # (A) 0 X 10*3/uL (0.04-0.35); Eosinophils % (A) 0 %; HGB 13.3 d/dL (13.0-17.0); Lymphocytes # (A) 0.83 X 10*3/uL (0.90-5.00); Lymphocytes % (A) 7.1 %; MCH 29.5 pg (27.0-32.0); MCHC 30.2 d/dL (32.0-37.0); MCV 97.6 FL (80.0-97.0); Mean Platelet Volume 10.7 FL (9.5-12.2); Monocytes # (A) 1.02 X 10*3/uL (0.20-1.00); Monocytes % (A) 8.7 %; NRBC Per 100 WBC 0 X 10*3/uL (0.00-0.01); Neutrophils # (A) 9.77 X 10*3/uL (1.80-7.70); Neutrophils % (A) 83.6 %; Platelet Count 292 X 10*3/uL (140-440); RBC 4.51 X 10*6/uL (4.40-5.60); WBC 11.69 X 10*3/uL (4.50-10.00)
[2023-03-15] MEDS ORDERED: guaiFENesin-DM 600/30MG 1 EACH TAB.ER.12H PO PRN (11:03)
[2023-03-15 11:07] LABS: Blood Urea Nitrogen 20.9 mg/dL (9.0-27.0); Calcium 10.4 mg/dL (8.7-10.3); Carbon Dioxide 28.3 mmol/L (21.6-31.8); Chloride 99 mmol/L (96-109); Glucose 155 mg/dL (70-110); Sodium 141 mmol/L (135-145)
[2023-03-15 11:35] LABS: Glucose,Whole Blood 209 mg/dL (70-110)
--- NOTE | 2023-03-15 13:19 | P.PN ---
Subjective Progress Note Date: 03/15/23 I am seeing this patient in consultation today 03/14/2023 for acute COPD exacerbation. Patient is a 77-year-old white male with past medical history significant for severe oxygen dependent COPD, hypertension, hyperlipidemia, coronary artery disease, Raynaud's, and former tobacco smoker. Patient's prima ry care provider is Dr. Kohler. He does follow the pulmonary office with Dr. Sierra for management of his severe COPD. Patient started experiencing presently worsening shortness of breath, chest congestion, and a nonproductive cough starting approximately one month ago. Patient was recently treated for COPD exacerbation in the office with a combination of Augmentin and prednisone burst taper. He was also switched to Trelegy inhaler. He states that he has not been using his Trelegy inhaler daily as he should. Patient is currently sitting up in bed, on 2 L/m nasal cannula, in no acute distress. He denies any fevers, chills, chest pain. Denies sick contacts. Denies any heart palpitations, lightheadedness, syncope, or increased lower extremity edema. Chest x-ray on arrival showed no acute cardiopulmonary process. D-dimer was elevated so a follow-up chest CTA was done to rule out pulmonary embolism. No obvious central pulmonary embolism was seen. There is moderate central lobar emphysema. No focal infiltrates, pleural effusion, or pneumothorax. CBC on arrival was unremarkable. No leukocytosis. BMP on arrival was also unremarkable. Troponin 0.014. NT proBNP not elevated. ECG shows sinus tachycardia and possible inferior myocardial infarction, probably old, with Q waves in II, III, and aVF. Negative for influenza, RSV, COVID-19. Afebrile. Patient is hemodynamically s table. On today's evaluation of 03/15/2023, the patient is being seen for a follow-up. He is doing better compared to yesterday. He was hospitalized for an acute COPD exacerbation. He remains on bronchodilators. He remains on steroids and the patient is on Solu-Medrol every 6 hours. Is sitting up on a decline. His calm and comfortable. No interval worsening in his oxygenation. No chest pain. No pleurisy or hemoptysis. No other specific complaints otherwise for now. Blood work from today shows a BUN of 20 with a creatinine of 1. Serum bicarb is at 28. Sodium level is at 141. The rhythm was 11.6 with a hemoglobin of 15.3. Objective - Vital Signs Vital signs: Vital Signs Temp 96.5 F L 03/15/23 08:00 Pulse 80 03/15/23 08:19 Resp 21 03/15/23 08:00 BP 135/78 03/15/23 08:00 Pulse Ox 93 L 03/15/23 08:14 FiO2 28 03/14/23 08:42 Intake & Output 03/14/23 03/15/23 03/15/23 18:59 06:59 18:59 Intake Total 250 Balance 250 Weight 139.706 kg Intake: Oral 250 Other: # Voids 3 - Exam GENERAL EXAM: Alert, 77-year-old morbidly obese white male , comfortable in no apparent distress. HEAD: Normocephalic and atraumatic EYES: Normal reaction of pupils, equal size. NOSE: Clear with pink turbinates. THROAT: No erythema or exudates. NECK: No masses, no JVD. CHEST: No chest wall deformity. LUNGS: Equal air entry with markedly diminished lung sounds throughout along with expiratory wheezes, on 2 L/m nasal cannula, No conversational dyspnea or accessory muscle use.. CVS: S1 and S2 normal with no audible murmur, regular rhythm. No extra heart sounds ABDOMEN: No hepatosplenomegaly, active bowel sounds, no guarding or rigidity. SPINE: No scoliosis or deformity SKIN: No rashes CENTRAL NERVOUS SYSTEM: No focal deficits, tone is normal in all 4 extremities. EXTREMITIES: There is no peripheral edema, clubbing, or cyanosis. Peripheral pulses are intact. - Labs CBC & Chem 7: 03/15/23 06:36 03/15/23 06:36 Labs: Abnormal Lab Results - Last 24 Hours (Table) 03/14/23 03/14/23 03/14/23 Range/Units 12:38 17:39 20:54 WBC (4.50-10.00) X 10*3/uL MCV (80.0-97.0) FL MCHC (32.0-37.0) d/dL Neutrophils # (1.80-7.70) X 10*3/uL Lymphocytes # (0.90-5.00) X 10*3/uL Monocytes # (0.20-1.00) X 10*3/uL Eosinophils # (0.04-0.35) X 10*3/uL POC Glucose (mg/dL) 168 H 172 H 152 H (70-110) mg/dL 03/15/23 03/15/23 Range/Units 06:36 06:38 WBC 11.69 H (4.50-10.00) X 10*3/uL MCV 97.6 H (80.0-97.0) FL MCHC 30.2 L (32.0-37.0) d/dL Neutrophils # 9.77 H (1.80-7.70) X 10*3/uL Lymphocytes # 0.83 L (0.90-5.00) X 10*3/uL Monocytes # 1.02 H (0.20-1.00) X 10*3/uL Eosinophils # 0 L (0.04-0.35) X 10*3/uL POC Glucose (mg/dL) 138 H (70-110) mg/dL Assessment and Plan Assessment: Acute COPD exacerbation, chest x-ray shows no acute cardiopulmonary processes. Negative for influenza, RSV, COVID-19. Chronic hypoxemic respiratory failure, currently on 2 L/m nasal cannula Sinus tachycardia Benign essential hypertension Hyperlipidemia Coronary artery disease, with previous PCI/stenting Morbid obesity, with a BMI of 45.5 kg/m, with KEVIN-like features Severe chronic obstructive pulmonary disease, with an FEV1 38% of predicted Former tobacco smoker Plan: Patient is being treated for an acute choked exacerbation and the patient is gradually improving. We'll continue the DuoNeb's, Symbicort inhaler, and IV Solu-Medrol Patient educated on the need to take his maintenance inhaler daily We will continue to follow The blood work is essentially negative. Troponins are negative. ProBNP is nonelevated. I did not appreciate any abnormalities on the CAT scan of the moderate centrilobular emphysema. No evidence of any infiltration no evidence of pleural effusion or pneumothorax. Discussed the case with the family. We'll continue same management. We'll admit this patient to the hospital and optimize his COPD. The patient continues to improve.
--- NOTE | 2023-03-15 13:45 | P.PN ---
Subjective Progress Note Date: 03/15/23 Hospital Course: 77-year-old male with a PMH of COPD on 3 L nasal cannula oxygen continuously at home, hypertension, hyperlipidemia, and GERD who presents to the emergency room with complaints of shortness of breath, cough, and chest tightness. In the emergency room, a chest CTA revealed moderate centrilobular emphysema. EKG showed sinus tachycardia initially at 134 bpm and subsequently at 108 bpm with inferior lead Q waves noted. Laboratory evaluation was remarkable for lactic ac id 1.3, troponin 0.014, d-dimer 1.01, sodium 135, proBNP 104, with viral panel negative. Patient admitted for COPD exacerbation. Currently on IV steroids and bronchodilators. Pulmonology also following. Subjective: Patient seen and examined at bedside. Continues to feel short of breath but im proving. No acute events overnight. Pertinent positives and negatives as discussed above, a complete review of systems was performed and all other systems are negative. Vitals Signs Reviewed. General: non toxic, no distress, appears at stated age, morbidly obese Derm: no unusual rashes/lesions, warm Head: atraumatic, normocephalic, symmetric Eyes: EOMI, no lid lag, anicteric sclera, pupils equal round reactive to light ENT: Nose and ears atraumatic Neck: No cervical lymphadenopathy, trachea midline, supple Mouth: no lip lesion, mucus membranes moist Cardiovascular: S1S2 reg, no murmur, positive dorsalis pedis pulse bilateral, no edema Lungs: Poor air entry bilaterally with expiratory wheezing appreciated without rales or rhonchi, no accessory muscle use, supplemental oxygen Abdominal: soft, nontender to palpation, no guarding Ext: muscle strength 5 out of 5 in all 4 extremities grossly, no gross muscle atrophy, no contractures, Neuro: CN II-XI grossly intact, no gross focal neuro deficits Psych: Alert, oriented, appropriate affect Data Reviewed Today: Pertinent Labs: WBC 11.7, potassium 5, creatinine 1, glucose range between 138- 172 Imaging: No new imaging Assessment and Plan: Active: Acute COPD exacerbation Acute on chronic hypoxic respiratory failure Leukocytosis, likely steroid-induced Prediabetes, with hyperglycemia, also steroid-induced -Pulmonology of note reviewed, continue Solu-Medrol IV 60 mg every 6 hours, DuoNeb 4 times a day and when necessary, Symbicort twice a day -Continue moving oxygen -Continue sliding scale insulin, monitor for hypoglycemia Chronic: Hypertension Dyslipidemia DVT ppx: Lovenox Code status: Full code Anticipated discharge place: Home Anticipated discharge time: 1-2 days Objective - Vital Signs Vital signs: Vital Signs Temp 97.7 F 03/15/23 13:30 Pulse 108 H 03/15/23 13:30 Resp 18 03/15/23 13:30 BP 132/91 03/15/23 13:30 Pulse Ox 93 L 03/15/23 13:30 FiO2 28 03/14/23 08:42 Intake & Output 03/14/23 03/15/23 03/15/23 18:59 06:59 18:59 Intake Total 250 Balance 250 Weight 139.706 kg Intake: Oral 250 Other: # Voids 3 - Labs CBC & Chem 7: 03/15/23 06:36 03/15/23 06:36 Labs: Abnormal Lab Results - Last 24 Hours (Table) 03/14/23 03/14/23 03/15/23 Range/Units 17:39 20:54 06:36 WBC 11.69 H (4.50-10.00) X 10*3/uL MCV 97.6 H (80.0-97.0) FL MCHC 30.2 L (32.0-37.0) d/dL Neutrophils # 9.77 H (1.80-7.70) X 10*3/uL Lymphocytes # 0.83 L (0.90-5.00) X 10*3/uL Monocytes # 1.02 H (0.20-1.00) X 10*3/uL Eosinophils # 0 L (0.04-0.35) X 10*3/uL Anion Gap (4.00-12.00) mmol/L BUN/Creatinine Ratio (12.00-20.00) Ratio Glucose (70-110) mg/dL POC Glucose (mg/dL) 172 H 152 H (70-110) mg/dL Calcium (8.7-10.3) mg/dL 03/15/23 03/15/23 03/15/23 Range/Units 06:36 06:38 11:31 WBC (4.50-10.00) X 10*3/uL MCV (80.0-97.0) FL MCHC (32.0-37.0) d/dL Neutrophils # (1.80-7.70) X 10*3/uL Lymphocytes # (0.90-5.00) X 10*3/uL Monocytes # (0.20-1.00) X 10*3/uL Eosinophils # (0.04-0.35) X 10*3/uL Anion Gap 13.70 H (4.00-12.00) mmol/L BUN/Creatinine Ratio 20.90 H (12.00-20.00) Ratio Glucose 155 H (70-110) mg/dL POC Glucose (mg/dL) 138 H 209 H (70-110) mg/dL Calcium 10.4 H (8.7-10.3) mg/dL
[2023-03-15 16:55] LABS: Glucose,Whole Blood 189 mg/dL (70-110)
[2023-03-15 21:03] LABS: Glucose,Whole Blood 154 mg/dL (70-110)
[2023-03-15] MEDS: lisinopriL 10 MG TAB PO SCH (21:57)
[2023-03-15] MEDS: ATORVASTATIN 80 MG TAB PO SCH (21:57)
[2023-03-15] MEDS: METOPROLOL TARTRATE 25 MG TAB PO SCH (21:57)
[2023-03-16] MEDS: methylPREDNISolone SOD SUCCI 125 MG/2 ML VIAL IV SCH ×2 (01:57→06:59)
[2023-03-16] MEDS: INSULIN ASPART (NovoLOG) 100 UNIT/ML VIAL SQ SCH ×2 (06:59→12:28)
[2023-03-16 07:00] LABS: Glucose,Whole Blood 148 mg/dL (70-110)
[2023-03-16] MEDS: IPRATROPIUM-ALBUTEROL 3 ML NEB INHALATION SCH ×3 (07:45→15:17)
[2023-03-16] MEDS: SYMBICORT 160-4.5 MCG INHALER INHALATION SCH (07:45)
[2023-03-16] MEDS: ENOXAPARIN 40 MG/0.4 ML SYRINGE SQ SCH (08:02)
[2023-03-16 11:30] LABS: Glucose,Whole Blood 187 mg/dL (70-110)
[2023-03-16] MEDS ORDERED: predniSONE 20 MG TAB PO SCH (11:45)
--- NOTE | 2023-03-16 14:28 | P.DS ---
Providers Date of admission: 03/14/23 01:03 Expected date of discharge: 03/16/23 Attending physician: Karlene Azar MD Consults: 03/14/23 01:24 Consult Physician Urgent Consulting Provider: Tobias Sierra Consult Reason/Comments: acute respiratory insuff, aecopd Do you want consulting provider notified?: Yes Primary care physician: Negro Kohler MD Hospital Course: Discharge Diagnosis: Acute COPD exacerbation Acute on chronic hypoxic respiratory failure Leukocytosis, likely steroid-induced Prediabetes, with hyperglycemia, also steroid-induced Hypertension Dyslipidemia Hospital Course: 77-year-old male with a PMH of COPD on 3 L nasal cannula oxygen continuously at home, hypertension, hyperlipidemia, and GERD who presents to the emergency room with complaints of shortness of breath, cough, and chest tightness. In the emergency room, a chest CTA revealed moderate centrilobular emphysema. EKG showed sinus tachycardia initially at 134 bpm and subsequently at 108 bpm with inferior lead Q waves noted. Laboratory evaluation was remarkable for lactic acid 1.3, troponin 0.014, d-dimer 1.01, sodium 135, proBNP 104, with viral panel negative. Patient admitted for COPD exacerbation. Started on IV steroids and bronchodilators. Pulmonology also following. Patient's breathing has improved at the time of discharge. Discharge home on oral steroids, follow-up with pulmonology. Patient seen and examined at bedside. Vital signs reviewed and stable. General: nontoxic, no distress, appears at stated age, morbidly obese Derm: warm, dry Head: atraumatic, normocephalic, symmetric Eyes: EOMI, no lid lag, anicteric sclera Mouth: no lip lesion, mucus membranes moist Cardiovascular: S1S2 reg, no murmur Lungs: CTA bilateral, no rhonchi, no rales , no accessory muscle use, supplemental oxygen Abdominal: soft, nontender to palpation, no guarding, no appreciable organomegaly Ext: no gross muscle atrophy, no edema, no contractures Neuro: CN II-XI grossly intact, no focal neuro deficits Psych: Alert, oriented, appropriate affect A total of 33 minutes of time were spent preparing this complex discharge summary. Patient was discharged on 03/16/23 at 14:13. Patient Condition at Discharge: Stable Plan - Discharge Summary Discharge Rx Participant: No New Discharge Prescriptions: New predniSONE [Deltasone] 40 mg PO DAILY #6 tab guaiFENesin-DM 600/30MG [Mucinex Dm] 2 each PO Q12HR PRN #14 tab PRN Reason: Cough Continue Metoprolol Tartrate [Lopressor] 25 mg PO HS Albuterol Inhaler [Ventolin Hfa Inhaler] 1 - 2 puff INHALATION RT-Q4H Aspirin 81 mg PO MOWEFR@2100 Atorvastatin [Lipitor] 80 mg PO HS lisinopriL [Prinivil] 10 mg PO HS Fluticasone/Umeclidin/Vilanter [Trelegy Ellipta 200-62.5-25] 1 puff INHALATION RT-HS Discharge Medication List Albuterol Inhaler [Ventolin Hfa Inhaler] 1 - 2 puff INHALATION RT-Q4H 02/17/18 [History] Aspirin 81 mg PO MOWEFR@2100 02/17/18 [History] Atorvastatin [Lipitor] 80 mg PO HS 02/17/18 [History] Metoprolol Tartrate [Lopressor] 25 mg PO HS 02/17/18 [History] Fluticasone/Umeclidin/Vilanter [Trelegy Ellipta 200-62.5-25] 1 puff INHALATION RT-HS 03/14/23 [History] lisinopriL [Prinivil] 10 mg PO HS 03/14/23 [History] guaiFENesin-DM 600/30MG [Mucinex Dm] 2 each PO Q12HR PRN #14 tab 03/16/23 [Rx] predniSONE [Deltasone] 40 mg PO DAILY #6 tab 03/16/23 [Rx] Follow up Appointment(s)/Referral(s): Negro Kohler MD [Primary Care Provider] - 1-2 days Tobias Sierra DO [Family Provider] - 1 Week Patient Instructions/Handouts: COPD (Chronic Obstructive Pulmonary Disease) (DC) Activity/Diet/Wound Care/Special Instructions: Please see your PCP and pulmnologist. Discharge Disposition: HOME SELF-CARE
[2023-03-16 14:32] VITALS: BP 146/93; RESP 18; TEMP 98.3
--- NOTE | 2023-03-16 14:47 | P.PN ---
Subjective Progress Note Date: 03/16/23 I am seeing this patient in consultation today 03/14/2023 for acute COPD exacerbation. Patient is a 77-year-old white male with past medical history significant for severe oxygen dependent COPD, hypertension, hyperlipidemia, coronary artery disease, Raynaud's, and former tobacco smoker. Patient's prima ry care provider is Dr. Kohler. He does follow the pulmonary office with Dr. Sierra for management of his severe COPD. Patient started experiencing presently worsening shortness of breath, chest congestion, and a nonproductive cough starting approximately one month ago. Patient was recently treated for COPD exacerbation in the office with a combination of Augmentin and prednisone burst taper. He was also switched to Trelegy inhaler. He states that he has not been using his Trelegy inhaler daily as he should. Patient is currently sitting up in bed, on 2 L/m nasal cannula, in no acute distress. He denies any fevers, chills, chest pain. Denies sick contacts. Denies any heart palpitations, lightheadedness, syncope, or increased lower extremity edema. Chest x-ray on arrival showed no acute cardiopulmonary process. D-dimer was elevated so a follow-up chest CTA was done to rule out pulmonary embolism. No obvious central pulmonary embolism was seen. There is moderate central lobar emphysema. No focal infiltrates, pleural effusion, or pneumothorax. CBC on arrival was unremarkable. No leukocytosis. BMP on arrival was also unremarkable. Troponin 0.014. NT proBNP not elevated. ECG shows sinus tachycardia and possible inferior myocardial infarction, probably old, with Q waves in II, III, and aVF. Negative for influenza, RSV, COVID-19. Afebrile. Patient is hemodynamically s table. On today's evaluation of 03/15/2023, the patient is being seen for a follow-up. He is doing better compared to yesterday. He was hospitalized for an acute COPD exacerbation. He remains on bronchodilators. He remains on steroids and the patient is on Solu-Medrol every 6 hours. Is sitting up on a decline. His calm and comfortable. No interval worsening in his oxygenation. No chest pain. No pleurisy or hemoptysis. No other specific complaints otherwise for now. Blood work from today shows a BUN of 20 with a creatinine of 1. Serum bicarb is at 28. Sodium level is at 141. The rhythm was 11.6 with a hemoglobin of 15.3. On today's evaluation of 2022, the patient is feeling better. He is slightly confused overnight and this is probably related to delirium and use of high-dose of steroids. Nevertheless, his mental status improved. The patient is back to his baseline. Less short of breath. Respiratory spastic and wheezy. No other new complaints otherwise for now. IV Solu-Medrol to be taken off and the patient will be discharged home on a prednisone burst taper and he will restart Trelegy Ellipta as maintenance. Objective - Vital Signs Vital signs: Vital Signs Temp 98.2 F 03/16/23 07:13 Pulse 84 03/16/23 11:31 Resp 22 03/16/23 08:00 BP 156/78 03/16/23 07:13 Pulse Ox 95 03/16/23 07:49 FiO2 28 03/14/23 08:42 Intake & Output 03/15/23 03/16/23 03/16/23 18:59 06:59 18:59 Intake Total 450 120 Balance 450 120 Intake: Oral 450 120 Other: Voiding Method Toilet Toilet # Voids 2 3 - Exam GENERAL EXAM: Alert, 77-year-old morbidly obese white male , comfortable in no apparent distress. HEAD: Normocephalic and atraumatic EYES: Normal reaction of pupils, equal size. NOSE: Clear with pink turbinates. THROAT: No erythema or exudates. NECK: No masses, no JVD. CHEST: No chest wall deformity. LUNGS: Equal air entry with markedly diminished lung sounds throughout along with expiratory wheezes, on 2 L/m nasal cannula, No conversational dyspnea or accessory muscle use.. CVS: S1 and S2 normal with no audible murmur, regular rhythm. No extra heart sounds ABDOMEN: No hepatosplenomegaly, active bowel sounds, no guarding or rigidity. SPINE: No scoliosis or deformity SKIN: No rashes CENTRAL NERVOUS SYSTEM: No focal deficits, tone is normal in all 4 extremities. EXTREMITIES: There is no peripheral edema, clubbing, or cyanosis. Peripheral pulses are intact. - Labs CBC & Chem 7: 03/15/23 06:36 03/15/23 06:36 Labs: Abnormal Lab Results - Last 24 Hours (Table) 03/15/23 03/15/23 03/16/23 Range/Units 16:52 21:02 06:59 POC Glucose (mg/dL) 189 H 154 H 148 H (70-110) mg/dL 03/16/23 Range/Units 11:29 POC Glucose (mg/dL) 187 H (70-110) mg/dL Assessment and Plan Assessment: Acute COPD exacerbation, chest x-ray shows no acute cardiopulmonary processes. Negative for influenza, RSV, COVID-19. Clinically improved Chronic hypoxemic respiratory failure, currently on 2 L/m nasal cannula Sinus tachycardia Benign essential hypertension Hyperlipidemia Coronary artery disease, with previous PCI/stenting Morbid obesity, with a BMI of 45.5 kg/m, with KEVIN-like features Severe chronic obstructive pulmonary disease, with an FEV1 38% of predicted Former tobacco smoker Plan: Patient will be discharged home on a prednisone burst taper starting with 40 mg and Trelegy Ellipta as maintenance Continue DuoNeb about treatments 4 times a day Patient educated on the need to take his maintenance inhaler daily We will continue to follow The blood work is essentially negative. Troponins are negative. ProBNP is nonelevated. I did not appreciate any abnormalities on the CAT scan of the moderate centrilobular emphysema. No evidence of any infiltration no evidence of pleural effusion or pneumothorax. Discussed the case with the family. We'll continue same management. We'll admit this patient to the hospital and optimize his COPD. The patient continues to improve. Continue to follow up this patient on outpatient basis. For now, the patient is stable enough to be discharged home.
[2023-03-16 15:33] VITALS: PULSE 84
== END 2023-03-16 17:39 | disposition home or self-care (01) ==
LOC: EC 21:30 → 4SSUR 03-14 01:03 → INTOOBSV 03-14 01:03 → 4SSUR 03-14 16:51 → UNDODISIN 03-16 17:39
PROVIDERS: ADMIT Internal Medicine; ATTEND Internal Medicine
DX: J44.1 Chronic obstructive pulmonary disease with (acute) exacerbation (principal); J96.21 Acute and chronic respiratory failure with hypoxia; D72.829 Elevated white blood cell count, unspecified; R73.9 Hyperglycemia, unspecified; R73.03 Prediabetes; R00.0 Tachycardia, unspecified; I10 Essential (primary) hypertension; E78.5 Hyperlipidemia, unspecified; I25.10 Atherosclerotic heart disease of native coronary artery without angina pectoris; K21.9 Gastro-esophageal reflux disease without esophagitis; G62.9 Polyneuropathy, unspecified; E66.01 Morbid (severe) obesity due to excess calories; Z68.42 Body mass index [BMI] 45.0-49.9, adult; Z20.822 Contact with and (suspected) exposure to COVID-19; Z87.891 Personal history of nicotine dependence; Z95.5 Presence of coronary angioplasty implant and graft; Z99.81 Dependence on supplemental oxygen; Z79.02 Long term (current) use of antithrombotics/antiplatelets; Z79.82 Long term (current) use of aspirin; Z79.899 Other long term (current) drug therapy; Z88.1 Allergy status to other antibiotic agents
CPT/HCPCS: 96376 ×3; 96372 ×3; 96365; 96375; 99285; 36415; 94640 ×7; 94760 ×3; 93005 ×2; 85379; 83880; 80053; 80048; 83605; 83735; 84484; 85025 ×2; 85610; 85730; 87636; 71045; 71275; G0378 ×3; J2930 ×4; J1650 ×3; J3475; J7512; Q9967